=== PATIENT | female | born 1965 | race Caucasian/White ===

== ENCOUNTER 2023-08-26 08:52 | Outpatient (AMB) | payer OTHER, SELFPAY ==
--- NOTE | 2023-08-26 08:58 | MHC.PC.OV ---
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, medication review Intake Note: New patient visit Assistant Manager Pt Required: No Post menopausal: Yes Allergies No Known Allergies Allergy (Verified 08/26/23 08:59) Medication List - Last Reconciled 08/26/23 by Tara Tapia PA-C albuterol sulfate 90 mcg/actuation inhalation alendronate 70 mg PO QWEEK amitriptyline 10 mg PO BEDTIME beclomethasone dipropionate 40 mcg/actuation (Qvar RediHaler) inhalation Tobacco use date assessed: 08/26/23 Dental Screening Dental Screen Date: 08/26/23 Did you have a dental visit in the last 12 months?: Yes Did you have a dental problem in the last 6 months where you did not have access to dental care?: No Was dental information given to patient?: Patient has dentist HPI ROLLER PRINT TENDER, medication review HPI Details Patient is a 57-year-old female who presents today to [facility]. She is transferring from [facility]. She was last seen by myself in January and has a significant past medical history of asthma, anxiety, insomnia, TMJ, impaired fasting glucose, history of SVT and dyslipidemia. Endo: She has a hx a obesity and ifg and would like to try something stronger than ozempic. states ozempic only helped her lose 10 lbs. Pulm: She is on qvar daily and has not needed albuterol. No hospitalizations or intubations. CV: bp today is 117/70. She is no longer on atenolol. She had ablation in 12/[address] Gonzalez and has not had any sx. States she was supposed to control her cholesterol with diet but has been struggling with this. She states that she thinks she needs to go back on Ozempic or Mounjaro. She had a hamburger and macaroni and cheese last night for dinner. She states the day before she had a bag of chips. Psych: amitritypline well tolerated. she states her sleep is great, anxiety is improved and her tmj is resolved. Mammo: Utd, at [facility] 07/2023 colonoscopy: utd, due in 2027 q 5 years pap: utd, follows with Dr. Rizzo, seeing him this month follows with dental q 6 months overdue for eye exam. [facility] Medical History (Updated 08/26/23 @ 09:42 by Tara Tapia PA-C) TMJ (temporomandibular joint syndrome) Insomnia Generalized anxiety disorder Obesity (BMI 30.0-34.9) Colon polyp Hx of supraventricular tachycardia Asthma, mild intermittent, well-controlled Dyslipidemia IFG (impaired fasting glucose) Social History Housing: House Patient Tobacco Use Status: Former Tobacco user Cigarette Packs Per Day: 0.5 Years Smoked: 25 e-Cigarette/Vaping Use: Never Used Second Hand Smoke Exposure: No service: No Current occupational status: unemployed Cognitive needs: No Hearing needs: No Vision needs: No Questionnaire PHQ-9 Over the last 2 weeks, how often have you been bothered by any of the following problems? 1. Little interest or pleasure in doing things: not at all 2. Feeling down, depressed, or hopeless: not at all 3. Trouble falling or staying asleep, or sleeping too much: several days 4. Feeling tired or having little energy: not at all 5. Poor appetite or overeating: more than half the days 6. Feeling bad about yourself - or that you are a failure or have let yourself or your family down: not at all 7. Trouble concentrating on things, such as reading the newspaper or watching television: not at all 8. Moving or speaking so slowly that other people could have noticed. Or the opposite - being so fidgety or restless that you have been moving around a lot more than usual: not at all 9. Thoughts that you would be better off or of hurting yourself in some way: not at all Total score: 3 Depression Screening Interpretation: Positive Depression Screening Follow-up: In treatment and Declines treatment Depression Screening Done: Yes 46825 - PHQ-9 Billing: Yes Source: Developed by Drs. Shad Allen, Mayra Morales, Elder Valverde and colleagues, with an educational elsa from [employer]. Thrive Questionnaire Date Thrive assessed: 08/26/23 I am a: Patient What is your living situation today?: I have a steady place to live Within the past 12 months, did the food you bought not last and you didn't have the money to get more?: Never true Within the past 12 months, did you worry whether your food would run out before you got money to buy more?: Never true Do you have trouble paying for medicines?: No Do you have trouble getting transportation to medical appointments?: No Do you have trouble paying your heating and electricity bill?: No Do you have trouble taking care of your child, family member or friend?: No Do you have trouble with day-to-day activities such as bathing, preparing meals, shopping, managing finances, etc.?: No Are you currently unemployed and looking for a job?: No Are you interested in more education?: No Please select the resources that you would like help with: None Currently or been in a relationship where the following occur: no concerns reported THRIVE Score: 0 AUDIT C Alcohol Use Questionnaire (AUDIT-C) 1. How often do you have a drink containing alcohol?: 2-3 times a week 2. How many drinks containing alcohol do you have on a typical day when you are drinking?: 5 or 6 3. How often do you have six or more drinks on one occasion?: Weekly Total Score: 8 CRISTIN-7 AMB Questionnaire CRISTIN-7 Date CRISTIN - 7 assessed: 08/26/23 Feeling nervous, anxious, or on edge: 0 = Not at all Not being able to stop or control worryin = Not at all Worrying too much about different things: 0 = Not at all Trouble relaxin = Not at all Being so restless that it is hard to sit still: 0 = Not at all Becoming easily annoyed or irritable: 0 = Not at all Feeling afraid as if something awful might happen: 0 = Not at all Total CRISTIN-7 score (0-4 normal; 5-9 mild; 10-14 moderate; 15-21 severe): 0 Source: Developed by Drs. Shad Allen, Mayra Morales, Elder Valverde and colleagues, with an educational elsa from [employer] CRISTIN-7 Assessment Billing CRISTIN-7 Assessment Tool: CRISTIN-7 Assessment 30152 Physical exam (Primary Care) Vital Signs: Last Vital Signs Temp 98.1 F 08/26/23 09:02 Pulse 70 08/26/23 09:02 Resp 16 08/26/23 09:02 BP 117/76 08/26/23 09:02 Pulse Ox 96 08/26/23 09:02 Oxygen Delivery Method Room Air 08/26/23 09:02 BMI result Body Mass Index 32.3 BMI Assessment/Plan discussion: High BMI High, discussed plan: lifestyle, weight reduction, dietary and physical activity Tobacco/Smoking Status: Tobacco use Status Tobacco use date assessed 08/26/23 08/26/23 09:06 Patient Tobacco Use Status Former Tobacco user 08/26/23 09:06 e-Cigarette/Vaping Use Never Used 08/26/23 09:06 Depression Screening Interpretation: Positive Depression Screening Follow-up: In treatment and Declines treatment Currently or been in a relationship where the following occur: no concerns reported Const Orientation/consciousness: patient oriented x3 HENMT Ears: hearing grossly normal bilaterally Neck Thyroid: Thyroid normal Lymphatic: no lymphadenopathy noted Resp Auscultation: clear to auscultation bilaterally Cardio Rate: regular rate Rhythm: regular rhythm Heart sounds: S1 normal heart sound present and S2 normal heart sound present GI Inspection: Yes normal to inspection Palpation (GI): Soft to palpation and Other GI palpation findings present (nontender, no cva tenderness) Auscultation: normoactive bowel sounds Rectal Exam - Female: deferred Skin General skin exam: no rashes or lesions noted Neuro General: patient oriented x3, gait normal and no focal motor deficits Assessment and Plan Assessment & Plan (1) IFG (impaired fasting glucose): Code(s): R73.01 - Impaired fasting glucose Plan: Labs ordered today. We will try Mounjaro. Discussed risks and benefits and adverse effects of this medication including nausea, vomiting, constipation. We discussed increased risk of pancreatitis, gastroparesis and thyroid malignancy. We will have her follow up in 3-4 months. Sooner if needed. (2) Dyslipidemia: Code(s): E78.5 - Hyperlipidemia, unspecified Plan: Labs ordered. We will follow up pending test results. Discussed possibility of statin. She tells me she will think about this. I have offered referral to yarn spooler but declines. (3) Obesity (BMI 30.0-34.9): Code(s): E66.9 - Obesity, unspecified Plan: As above. We discussed weight loss strategies. (4) Generalized anxiety disorder: Code(s): F41.1 - Generalized anxiety disorder Plan: Currently well-controlled. Refill provided for amitriptyline. Orders: Orders Lipid Panel Today E78.5 - Hyperlipidemia, unspecified, J45.20 - Mild intermittent asthma, uncomplicated, K63.5 - Polyp of colon, R73.01 - Impaired fasting glucose, Z86.79 - Personal history of other diseases of the circulatory system Comprehensive Duncan. Panel Fast Today E78.5 - Hyperlipidemia, unspecified, J45.20 - Mild intermittent asthma, uncomplicated, K63.5 - Polyp of colon, R73.01 - Impaired fasting glucose, Z86.79 - Personal history of other diseases of the circulatory system Complete Blood Count Auto Diff Today E78.5 - Hyperlipidemia, unspecified, J45.20 - Mild intermittent asthma, uncomplicated, K63.5 - Polyp of colon, R73.01 - Impaired fasting glucose, Z86.79 - Personal history of other diseases of the circulatory system Hemoglobin A1c Today E78.5 - Hyperlipidemia, unspecified, J45.20 - Mild intermittent asthma, uncomplicated, K63.5 - Polyp of colon, R73.01 - Impaired fasting glucose, Z86.79 - Personal history of other diseases of the circulatory system TSH reflex Free T4 Today E78.5 - Hyperlipidemia, unspecified, J45.20 - Mild intermittent asthma, uncomplicated, K63.5 - Polyp of colon, R73.01 - Impaired fasting glucose, Z86.79 - Personal history of other diseases of the circulatory system Medications: New tirzepatide (Mounjaro) 2.5 mg (0.5 mL) subcut QWEEK 4 weeks 2 mL 0RF amitriptyline 10 mg PO BEDTIME 90 tabs 3RF Coding Level of Care Code Est Pt Level 4 (69455) Complex EM visit Add On G2211 Diagnoses IFG (impaired fasting glucose) R73.01 Dyslipidemia E78.5 Obesity (BMI 30.0-34.9) E66.9 Generalized anxiety disorder F41.1 Additional Codes CRISTIN-7 Assessment Billing - CRISTIN-7 Assessment Tool: CRISTIN-7 Assessment 22880 ([id number])
[2023-08-26 09:02] VITALS: BP 117/76; PULSE 70; RESP 16; TEMP 36.7; O2SAT 96; BMI 32.3
== END 2023-08-26 09:41 | disposition home or self-care (01) ==
PROVIDERS: PCP Physician Assistant; Visit Provider Physician Assistant
DX: R73.01 Impaired fasting glucose (principal); E78.5 Hyperlipidemia, unspecified; E66.9 Obesity, unspecified; Z68.32 Body mass index [BMI] 32.0-32.9, adult; F41.1 Generalized anxiety disorder
CPT/HCPCS: 99214; G2211

== ENCOUNTER 2023-09-18 07:00 | Outpatient (REF) | payer OTHER, SELFPAY ==
[2023-09-18 11:27] LABS: MANUAL DIFF FLAG NO
[2023-09-18 11:36] LABS: Basophils Percent Auto 0.6 % (0-2); Eosinophils Absolute Auto 0.1 X10*3/uL (0.0-0.4); Eosinophils Percent Auto 2.1 % (0-4); Hematocrit 43.8 % (37.0-47.0); Hemoglobin 14.8 g/dl (12.0-16.0); Imm Gran Abs Auto 0.01 X10*3/uL (0.00-0.03); Imm Gran Pct Auto 0.2 % (0.0-0.4); Lymphocytes Absolute Auto 1.7 X10*3/uL (1.2-4.9); Lymphocytes Percent Auto 33.1 % (20-40); Mean Corpuscular HGB Conc 33.8 g/dl (31.0-35.0); Mean Corpuscular Hemoglobin 30.2 pg (27.0-33.0); Mean Corpuscular Volume 89.4 fL (80.0-98.0); Mean Platelet Volume 9.6 fL (9.4-12.3); Monocytes Absolute Auto 0.5 X10*3/uL (0.1-1.2); Monocytes Percent Auto 9.9 % (2-11); Neutrophils Absolute Auto 2.8 x10*3/uL (2.0-8.3); Neutrophils Percent Auto 54.1 % (45-73); Platelet Count 296 X10*3/uL (160-400); Red Cell Distribution Width 12.5 % (11.0-16.0); White Blood Count 5.2 X10*3/uL (4.8-10.8)
[2023-09-18 11:45] LABS: Estimated Average Glucose 123 mg/dL; Hemoglobin A1C 148.3174 umol/L; Hemoglobin A1c % 5.9 % (<6.0)
[2023-09-18 11:52] LABS: Alanine Aminotransferase 22 U/L (0-31); Albumin Level 4.3 g/dL (3.5-5.0); Alkaline Phosphatase 41 U/L (39-117); Anion Gap 12 (12-20); Aspartate Amino Transferase 17 U/L (5-31); Bilirubin Total 0.4 mg/dL (0.0-1.0); Blood Urea Nitrogen 11 mg/dL (9-16); Calcium 9.6 mg/dL (8.4-10.2); Carbon Dioxide 27 mmol/L (22-29); Chloride 106 mmol/L (96-108); Cholesterol 215 mg/dL (<200); Estimated Glomerular Filt Rate > 60; Glucose Fasting 99 mg/dL (60-99); HDL Cholesterol 46 mg/dL (>40); LDL Cholesterol Calculated 144 mg/dL (<100); Sodium 141 mmol/L (135-145); Total Protein 7.2 g/dL (6.5-8.0); Triglycerides 129 mg/dL (<150)
== END 2023-09-18 07:01 | disposition home or self-care (01) ==
LOC: HO.WFDLDS 07:00
PROVIDERS: Visit Provider Physician Assistant
DX: R73.01 Impaired fasting glucose (principal); E78.5 Hyperlipidemia, unspecified; J45.20 Mild intermittent asthma, uncomplicated; K63.5 Polyp of colon; Z86.79 Personal history of other diseases of the circulatory system
CPT/HCPCS: 36415; 80053; 80061; 83036; 84443; 85025

== ENCOUNTER 2023-12-09 08:24 | Outpatient (AMB) | payer OTHER, SELFPAY ==
--- NOTE | 2023-12-09 08:34 | MHC.PC.OV ---
Vital Signs 12/09/23 08:37 Height 5 ft 7 in Weight 199 lb 4 oz BMI 31.2 BP 108/84 Blood Pressure Location Lt brachial Position Sitting Pulse 76 Pulse Source Pulse Oximeter Pulse Oximetry (%) 96 Oxygen Delivery Method Room Air Intake Visit Reasons: 3 month f/u Intake Note: Three month follow up Allergies No Known Allergies Allergy (Verified 12/09/23 08:36) Medication List - Last Reconciled 12/09/23 by Tara Tapia PA-C albuterol sulfate 90 mcg/actuation 2 puffs inhalation Q4-6H PRN alendronate 70 mg PO QWEEK amitriptyline 10 mg PO BEDTIME beclomethasone dipropionate 40 mcg/actuation (Qvar RediHaler) inhalation semaglutide (Ozempic) 0.25 mg (0.368 mL) subcut QWEEK Tobacco use date assessed: 08/26/23 Dental Screening Dental Screen Date: 08/26/23 HPI 3 month f/u HPI Details Patient is a 58-year-old female who presents today to follow up. She has a significant past medical history of asthma, anxiety, insomnia, TMJ, impaired fasting glucose, history of SVT and dyslipidemia. Endo: She has a hx a obesity and ifg. On Ozempic and tolerating well. Would like to increase dose lose more weight Pulm: She is on qvar daily and has not needed albuterol. No hospitalizations or intubations. CV: bp today is 108/84. She is no longer on atenolol. She had ablation in 12/[address] Gonzalez and has not had any sx. Her cholesterol is diet controlled. She states it is getting better because she has lost some weight with the Ozempic. Psych: amitritypline well tolerated. she states her sleep is great, anxiety is improved and her tmj is resolved. Mammo: Utd, at [facility] [place] 07/2023 colonoscopy: utd, due in 2027 q 5 years pap: utd, follows with Dr. Rizzo Bone density: Up-to-date, on Fosamax. Follows with Dr. Rizzo for this [facility] Medical History (Updated 08/26/23 @ 09:45 by Sindy Jamison CMA) Osteoporosis TMJ (temporomandibular joint syndrome) Insomnia Generalized anxiety disorder Obesity (BMI 30.0-34.9) Colon polyp Hx of supraventricular tachycardia Asthma, mild intermittent, well-controlled Dyslipidemia IFG (impaired fasting glucose) Family History (Updated 08/26/23 @ 09:44 by Sindy Jamison CMA) Father HTN (hypertension) Social History (Updated 08/26/23 @ 09:14 by Sindy Jamison CMA) Housing: House Patient Tobacco Use Status: Former Tobacco user Cigarette Packs Per Day: 0.5 Years Smoked: 25 e-Cigarette/Vaping Use: Never Used Second Hand Smoke Exposure: No service: No Current occupational status: unemployed Cognitive needs: No Hearing needs: No Vision needs: No Questionnaire Thrive Questionnaire Date Thrive assessed: 08/26/23 CRISTIN-7 AMB Questionnaire CRISTIN-7 Date CRISTIN - 7 assessed: 08/26/23 Source: Developed by Drs. Shad Allen, Mayra Morales, Elder Valverde and colleagues, with an educational elsa from [employer]. Physical exam (Primary Care) Vital Signs: Last Vital Signs Pulse 76 12/09/23 08:37 BP 108/84 12/09/23 08:37 Pulse Ox 96 12/09/23 08:37 Oxygen Delivery Method Room Air 12/09/23 08:37 BMI result Body Mass Index 31.2 Tobacco/Smoking Status: Tobacco use Status Tobacco use date assessed 08/26/23 12/09/23 08:35 Patient Tobacco Use Status Former Tobacco user 12/09/23 08:35 e-Cigarette/Vaping Use Never Used 12/09/23 08:35 Thrive Assessment: Date of Thrive Assessment Date Thrive assessed 08/26/23 12/09/23 08:35 Const Orientation/consciousness: patient oriented x3 HENMT Ears: hearing grossly normal bilaterally Neck Thyroid: Thyroid normal Lymphatic: no lymphadenopathy noted Resp Auscultation: clear to auscultation bilaterally Cardio Rate: regular rate Rhythm: regular rhythm Heart sounds: S1 normal heart sound present and S2 normal heart sound present GI Inspection: Yes normal to inspection Palpation (GI): Soft to palpation and Other GI palpation findings present (nontender, no cva tenderness) Auscultation: normoactive bowel sounds Rectal Exam - Female: deferred Skin General skin exam: no rashes or lesions noted Neuro General: patient oriented x3, gait normal and no focal motor deficits Results Reviewed Results Reviewed: Laboratory Tests 09/18/23 07:01 WBC 5.2 RBC 4.90 Hgb 14.8 Hct 43.8 Plt Count 296 Sodium 141 Potassium 4.0 Chloride 106 Creatinine 0.82 Estimated GFR > 60 Fasting Glucose 99 Hemoglobin A1c % 5.9 AST 17 ALT 22 Triglycerides 129 Cholesterol 215 H LDL Cholesterol, Calc 144 H HDL Cholesterol 46 TSH 1.20 Assessment and Plan Assessment & Plan (1) IFG (impaired fasting glucose): Code(s): R73.01 - Impaired fasting glucose Plan: Increase Ozempic. We will check labs in 3 months (2) Dyslipidemia: Code(s): E78.5 - Hyperlipidemia, unspecified Plan: Cholesterol did improve with diet changes. We will continue to monitor she is not quite at goal. Orders: Orders Comprehensive [place]. Panel Fast Today E78.5 - Hyperlipidemia, unspecified, R73.01 - Impaired fasting glucose Lipid Panel Today E78.5 - Hyperlipidemia, unspecified, R73.01 - Impaired fasting glucose Hemoglobin A1c Today E78.5 - Hyperlipidemia, unspecified, R73.01 - Impaired fasting glucose Medications: New semaglutide (Ozempic) 0.5 mg (0.736 mL) subcut QWEEK 3 mL 3RF Discontinued semaglutide (Ozempic) for 4 weeks Discontinued Reason: Doctor's Order 0.25 mg (0.368 mL) subcut QWEEK 3 mL 3RF Coding Level of Care Code Est Pt Level 4 (78178) Complex EM visit Add On G2211 Diagnoses IFG (impaired fasting glucose) R73.01 Dyslipidemia E78.5
[2023-12-09 08:37] VITALS: BP 108/84; PULSE 76; O2SAT 96; BMI 31.2
== END 2023-12-09 09:05 | disposition home or self-care (01) ==
PROVIDERS: PCP Physician Assistant; Visit Provider Physician Assistant
DX: R73.01 Impaired fasting glucose (principal); E78.5 Hyperlipidemia, unspecified
CPT/HCPCS: 99214; G2211

== ENCOUNTER 2024-03-23 08:32 | Outpatient (REF) | payer OTHER, SELFPAY ==
[2024-03-23 11:47] LABS: Estimated Average Glucose 111 mg/dL; Hemoglobin A1C 142.7763 umol/L; Hemoglobin A1c % 5.5 % (<6.0); Total Hemoglobin (HGBA1C) 3859.5673 umol/L
[2024-03-23 12:08] LABS: Alanine Aminotransferase 22 U/L (0-31); Albumin Level 4.3 g/dL (3.5-5.0); Alkaline Phosphatase 49 U/L (39-117); Anion Gap 15 (12-20); Aspartate Amino Transferase 19 U/L (5-31); Bilirubin Total 0.4 mg/dL (0.0-1.0); Blood Urea Nitrogen 11 mg/dL (9-16); Calcium 9.4 mg/dL (8.4-10.2); Carbon Dioxide 27 mmol/L (22-29); Chloride 105 mmol/L (96-108); Cholesterol 221 mg/dL (<200); Estimated Glomerular Filt Rate > 60; Glucose Fasting 92 mg/dL (60-99); HDL Cholesterol 46 mg/dL (>40); LDL Cholesterol Calculated 148 mg/dL (<100); Potassium 4.1 mmol/L (3.3-5.1); Sodium 143 mmol/L (135-145); Total Protein 7.1 g/dL (6.5-8.0); Triglycerides 138 mg/dL (<150)
== END 2024-03-23 08:33 | disposition home or self-care (01) ==
LOC: HO.WFDLDS 08:32
PROVIDERS: Visit Provider Physician Assistant
DX: R73.01 Impaired fasting glucose (principal); E78.5 Hyperlipidemia, unspecified
CPT/HCPCS: 36415; 80053; 80061; 83036

== ENCOUNTER 2024-03-30 08:37 | Outpatient (AMB) | payer OTHER, SELFPAY ==
--- NOTE | 2024-03-30 08:50 | MHC.PC.OV ---
Vital Signs 03/30/24 08:51 Height 5 ft 7 in Weight 197 lb 8 oz BMI 30.9 BP 108/74 Blood Pressure Location Rt brachial Position Sitting Pulse 76 Pulse Source Pulse Oximeter Pulse Oximetry (%) 98 Oxygen Delivery Method Room Air Intake Visit Reasons: 3 month f/u Intake Note: Three month follow up Signal System Testing Maintainer Required: No Allergies No Known Allergies Allergy (Verified 03/30/24 08:50) Medication List - Last Reconciled 03/30/24 by Tara Tapia PA-C albuterol sulfate 90 mcg/actuation 2 puffs inhalation Q6H PRN alendronate 70 mg PO QWEEK amitriptyline 10 mg PO BEDTIME beclomethasone dipropionate 40 mcg/actuation (Qvar RediHaler) 1 inh inhalation BID 30 days semaglutide (Ozempic) 2 mg (0.75 mL) subcut QWEEK Tobacco use date assessed: 08/26/23 Dental Screening Dental Screen Date: 08/26/23 HPI 3 month f/u HPI Details History of Present Illness The patient is a 58-year-old female presenting with follow-up concerns regarding prediabetes, hypercholesterolemia, and weight management. Her blood glucose levels have shown improvement, with an A1c decrease from 5.9% (indicating prediabetes) to 5.5% (normal range). The patient attributes this change partly to medication. She has been taking semaglutide (Ozempic), started at 1 mg, and is now considering an increase to 2 mg to enhance weight loss and appetite suppression. Since November, her weight has reduced slightly from 199 lbs to 197 lbs. The patient notes that her clothing fits more loosely, though the scale change is minimal, suggesting potential improvements in body composition. Regarding cholesterol, despite dietary modifications such as reducing cheese intake, her levels remain elevated without significant change since August. She has a family history of hypercholesterolemia but no history of heart disease. She consumes yogurt with walnuts for breakfast and noted the use of high-fat salad dressings, which she plans to replace with healthier options. She also mentioned the use of fish oil, which was confirmed to lower triglycerides. The patient also described symptoms consistent with gastroesophageal reflux disease (GERD), which she associates with certain foods like spaghetti sauce and coffee. She does not want to try a medication at this point. She says she knows what triggers it and thinks it is a little bit worse because of the Ozempic. No difficulty swallowing or abdominal pain. 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 - Exercise: Regular walking at work and plans to incorporate more intensive exercise, such as walking uphill. - Diet: Consumes yogurt with walnuts, acknowledges high-fat salad dressing; plans to incorporate apple cider vinegar for cholesterol management. - Weight Management: Slight reduction in weight noted, interest in continuing weight loss efforts. - Smoking History: Quit smoking 15 years ago. Review of Systems - Gastrointestinal: Reports acid reflux associated with certain foods. - Respiratory: Denies chest pain, shortness of breath. - Neurological: Denies ear pain, sinus pain. Physical Exam General: Cooperative, healthy appearing, comfortable, no acute distress and well developed Orientation: Patient oriented x3 Limitations: No limitations Head: Normal to inspection Ears: Hearing grossly normal bilaterally, right ear with a teeny bit of salt crystals at the base- was in a salt pool/bath a few days ago and got water in her ear Nose: Normal external nose present Face and sinus: Normal facial exam Eyes: Appearance normal, both eyes and all related structures Neck: Normal visual inspection and Yes full ROM, no swelling, lymph nodes feel good, thyroid feels good Respiratory: Normal respiratory effort and able to speak in complete sentences. Clear to auscultation bilaterally Cardiovascular: Regular rate and rhythm. Normal S1 and S2 GI: Normal to inspection. Soft to palpation and nontender Skin: No rashes or lesions noted Neuro: Patient oriented x3 Extremities: Normal to inspection, no swelling, compression sock on one leg, legs look good Results - Labs: Blood glucose (A1c) improved to 5.5%. Plan - Prediabetes: Initiate an increased dose of semaglutide Ozempic) to 2 mg weekly to enhance weight loss and appetite suppression. - Hypercholesterolemia: Encourage continued dietary changes and maintain current use of fish oil. Plan for re-evaluation of cholesterol levels in four months. Will consider statin. - GERD: Educate on dietary triggers and consider apple cider vinegar as a potential remedy for symptom control. Monitor for exacerbation at increased medication dosage. - Weight Management: Advise continued physical activity, including increased intensity of exercise, such as walking uphill. - Preventive Care: Order comprehensive blood work in four months, including liver and kidney function tests, electrolytes, and complete blood count. Discuss cholesterol management options should lifestyle modifications not suffice. Patient was informed and verbally consented to the use of an ambient scribe for clinic note documentation during this visit. Discussion Notes I discussed with the patient the current management of her prediabetes, noting the positive impact of semaglutide on her blood glucose levels with a reduction in A1c to within normal limits. We reviewed the potential benefits of increasing the semaglutide dose to support further weight loss efforts, acknowledging the associated risks such as nausea and vomiting. For hypercholesterolemia, we explored dietary changes, stressing the importance of reducing processed high-fat foods. I advised maintaining fish oil supplementation and incorporating healthier dressing alternatives, such as balsamic vinegar with olive oil or apple cider vinegar. We discussed re-evaluating cholesterol levels after four months to assess the impact of these lifestyle changes. I advised on GERD management with dietary adjustments and explained the possible beneficial effects of apple cider vinegar for symptoms. We agreed to monitor symptoms closely, especially with the changes in medication dosage. [place] [facility] [place]: utd, due in 2027 q 5 years pap: jose antoniod, follows with Dr. Rizzo Bone density: Up-to-date, on Fosamax. Follows with Dr. Rizzo for this [facility] Medical History (Updated 08/26/23 @ 09:45 by iSndy Jamison CMA) Osteoporosis TMJ (temporomandibular joint syndrome) Insomnia Generalized anxiety disorder Obesity (BMI 30.0-34.9) Colon polyp Hx of supraventricular tachycardia Asthma, mild intermittent, well-controlled Dyslipidemia IFG (impaired fasting glucose) Family History Father HTN (hypertension) Social History (Updated 03/30/24 @ 08:55 by Sindy Jamison CMA) Housing: House Alcohol intake: current Patient Tobacco Use Status: Former Tobacco user Cigarette Packs Per Day: 0.5 Years Smoked: 25 e-Cigarette/Vaping Use: Never Used Second Hand Smoke Exposure: No service: No Current occupational status: unemployed Cognitive needs: No Hearing needs: No Vision needs: No Questionnaire PHQ-9 Over the last 2 weeks, how often have you been bothered by any of the following problems? 1. Little interest or pleasure in doing things: not at all 2. Feeling down, depressed, or hopeless: not at all 3. Trouble falling or staying asleep, or sleeping too much: not at all 4. Feeling tired or having little energy: not at all 5. Poor appetite or overeating: not at all 6. Feeling bad about yourself - or that you are a failure or have let yourself or your family down: not at all 7. Trouble concentrating on things, such as reading the newspaper or watching television: not at all 8. Moving or speaking so slowly that other people could have noticed. Or the opposite - being so fidgety or restless that you have been moving around a lot more than usual: not at all 9. Thoughts that you would be better off or of hurting yourself in some way: not at all Total score: 0 Depression Screening Interpretation: Negative Depression Screening Done: Yes 94828 - PHQ-9 Billing: Yes Source: Developed by Drs. Shad Allen, Mayra Morales, Elder Valverde and colleagues, with an educational elsa from [employer]. Thrive Questionnaire Date Thrive assessed: 03/30/24 I am a: Patient What is your living situation today?: I have a steady place to live Within the past 12 months, did the food you bought not last and you didn't have the money to get more?: Never true Within the past 12 months, did you worry whether your food would run out before you got money to buy more?: Never true Do you have trouble paying for medicines?: No Do you have trouble getting transportation to medical appointments?: No Do you have trouble paying your heating and electricity bill?: No Do you have trouble taking care of your child, family member or friend?: No Do you have trouble with day-to-day activities such as bathing, preparing meals, shopping, managing finances, etc.?: No Are you currently unemployed and looking for a job?: No Are you interested in more education?: No Please select the resources that you would like help with: None Currently or been in a relationship where the following occur: I choose not to answer THRIVE Score: 0 AUDIT C Alcohol Use Questionnaire (AUDIT-C) 1. How often do you have a drink containing alcohol?: 2-4 times a month 2. How many drinks containing alcohol do you have on a typical day when you are drinking?: 5 or 6 3. How often do you have six or more drinks on one occasion?: Never Total Score: 4 CRISTIN-7 AMB Questionnaire CRISTIN-7 Date CRISTIN - 7 assessed: 03/30/24 Feeling nervous, anxious, or on edge: 0 = Not at all Not being able to stop or control worryin = Not at all Worrying too much about different things: 0 = Not at all Trouble relaxin = Not at all Being so restless that it is hard to sit still: 0 = Not at all Becoming easily annoyed or irritable: 0 = Not at all Feeling afraid as if something awful might happen: 0 = Not at all Total CRISTIN-7 score (0-4 normal; 5-9 mild; 10-14 moderate; 15-21 severe): 0 Source: Developed by Drs. Shad Allen, Mayra Morales, Elder Valverde and colleagues, with an educational elsa from [employer]. CRISTIN-7 Assessment Billing CRISTIN-7 Assessment Tool: CRISTIN-7 Assessment 96954 Physical exam (Primary Care) Vital Signs: Last Vital Signs Pulse 76 03/30/24 08:51 BP 108/74 03/30/24 08:51 Pulse Ox 98 03/30/24 08:51 Oxygen Delivery Method Room Air 03/30/24 08:51 BMI result Body Mass Index 30.9 Tobacco/Smoking Status: Tobacco use Status Tobacco use date assessed 08/26/23 03/30/24 08:53 Patient Tobacco Use Status Former Tobacco user 03/30/24 08:55 e-Cigarette/Vaping Use Never Used 03/30/24 08:55 PHQ-9: PHQ-9 Score PHQ-9: Total score 0 03/30/24 12:58 Depression Screening Interpretation: Negative Thrive Assessment: Date of Thrive Assessment Date Thrive assessed 03/30/24 03/30/24 08:56 Currently or been in a relationship where the following occur: I choose not to answer Results Reviewed Results Reviewed: Laboratory Tests 09/18/23 03/23/24 07:01 08:33 Sodium 143 Potassium 4.1 Chloride 105 Carbon Dioxide 27 Anion Gap 15 BUN 11 Creatinine 0.86 Estimated GFR > 60 Fasting Glucose 92 Hemoglobin A1c % 5.9 5.5 AST 19 ALT 22 Triglycerides 138 Cholesterol 221 H LDL Cholesterol, Calc 148 H HDL Cholesterol 46 Coding Level of Care Code Est Pt Level 4 (70244) Complex EM visit Add On G2211 Diagnoses Obesity (BMI 30.0-34.9) E66.9 Dyslipidemia E78.5 IFG (impaired fasting glucose) R73.01 Additional Codes CRISTIN-7 Assessment Billing - CRISTIN-7 Assessment Tool: CRISTIN-7 Assessment [id number] ([id number]) PHQ-9 - 26463 - PHQ-9 Billing: Yes ([id number]) Assessment & Plan Assessment & Plan (1) Obesity (BMI 30.0-34.9): Code(s): E66.9 - Obesity, unspecified Category: Medical (2) Dyslipidemia: Code(s): E78.5 - Hyperlipidemia, unspecified Category: Medical (3) IFG (impaired fasting glucose): Code(s): R73.01 - Impaired fasting glucose Category: Medical Plan . Orders: Orders Complete Blood Count Auto Diff Today E66.9 - Obesity, unspecified, E78.5 - Hyperlipidemia, unspecified, R73.01 - Impaired fasting glucose Lipid Panel Today E66.9 - Obesity, unspecified, E78.5 - Hyperlipidemia, unspecified, R73.01 - Impaired fasting glucose Comprehensive Met. Panel Today E66.9 - Obesity, unspecified, E78.5 - Hyperlipidemia, unspecified, R73.01 - Impaired fasting glucose TSH reflex Free T4 Today E66.9 - Obesity, unspecified, E78.5 - Hyperlipidemia, unspecified, R73.01 - Impaired fasting glucose Hemoglobin A1c Today E66.9 - Obesity, unspecified, E78.5 - Hyperlipidemia, unspecified, R73.01 - Impaired fasting glucose Microalbumin, Random (w Creat) Today E66.9 - Obesity, unspecified, E78.5 - Hyperlipidemia, unspecified, R73.01 - Impaired fasting glucose Medications: New semaglutide (Ozempic) 2 mg (0.75 mL) subcut QWEEK 3 mL 2RF Discontinued semaglutide (Ozempic) Discontinued Reason: Doctor's Order 1 mg (0.75 mL) subcut QWEEK 3 mL 3RF
[2024-03-30 08:51] VITALS: BP 108/74; PULSE 76; O2SAT 98; BMI 30.9
== END 2024-03-30 09:22 | disposition home or self-care (01) ==
PROVIDERS: PCP Physician Assistant; Visit Provider Physician Assistant
DX: E78.5 Hyperlipidemia, unspecified (principal); E66.9 Obesity, unspecified; Z68.30 Body mass index [BMI] 30.0-30.9, adult; R73.01 Impaired fasting glucose

== ENCOUNTER → 2024-03-30 08:37 | Outpatient (BNVA) | payer OTHER, SELFPAY | PROVIDERS: PCP Physician Assistant; Visit Provider Physician Assistant | DX: E66.9 Obesity, unspecified (principal); Z68.30 Body mass index [BMI] 30.0-30.9, adult; E78.5 Hyperlipidemia, unspecified; R73.01 Impaired fasting glucose; K21.9 Gastro-esophageal reflux disease without esophagitis | CPT/HCPCS: 96127 ==

== ENCOUNTER 2024-06-02 08:36 | Outpatient (AMB) | payer OTHER, SELFPAY ==
--- NOTE | 2024-06-02 08:21 | MHC.PC.OV ---
Intake Visit Reasons: Cramping, mild rectal bleeding Intake Note: Cramping and rectal bleeding. Copy Cutter Required: No Allergies No Known Allergies Allergy (Verified 06/02/24 08:32) Tobacco use date assessed: 06/02/24 Dental Screening Dental Screen Date: 08/26/23 HPI Cramping, mild rectal bleeding HPI Details Pt is a 58 y/o female who has a significant pmhx of dyslipidemia, ifg and well controlled asthma presenting today with concerns of GI sx. GI: She states that she woke up early on Thursday morning with feeling nauseous and having abdominal pain. She states she had an episode of loose stool and noted bright red blood in the toilet bowl. She states that it every time she went to the bathroom (even for urination) she was just dripping blood from her rectum without any rectal pain. She states since Thursday she has only had rectal bleeding with bowel movements. She states she has had persistent suprapubic cramping and discomfort since Thursday that comes and goes. She states she had one episode of vomiting on Thursday and nothing since then. She has not had any diarrhea since Thursday. She does typically have some constipation since starting ozempic but states that she does not push or strain. She has no hx of internal hemorrhoids. She has a colonoscopy a couple years ago and is on the 5 year plan due to polyps. No fever, chills, decreased appetite, weight loss, flank pain, urinary sx. No recent travel. She states if she pushes on her abdomen she does not have pain. [facility] Medical History (Updated 06/02/24 @ 08:54 by Tara Tapia PA-C) Osteoporosis TMJ (temporomandibular joint syndrome) Insomnia Generalized anxiety disorder Obesity (BMI 30.0-34.9) Colon polyp Hx of supraventricular tachycardia Asthma, mild intermittent, well-controlled Dyslipidemia IFG (impaired fasting glucose) Family History Father HTN (hypertension) Social History (Updated 03/30/24 @ 08:55 by Sindy Jamison CMA) Housing: House Alcohol intake: current Patient Tobacco Use Status: Former Tobacco user Cigarette Packs Per Day: 0.5 Years Smoked: 25 e-Cigarette/Vaping Use: Never Used Second Hand Smoke Exposure: No service: No Current occupational status: employed 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 Current occupational exposures/hazards: No Cognitive needs: No Hearing needs: No Vision needs: No Questionnaire Thrive Questionnaire Date Thrive assessed: 06/01/24 I am a: Patient What is your living situation today?: I have a steady place to live Within the past 12 months, did the food you bought not last and you didn't have the money to get more?: Never true Within the past 12 months, did you worry whether your food would run out before you got money to buy more?: Never true Do you have trouble paying for medicines?: I choose not to answer this question Do you have trouble getting transportation to medical appointments?: No Do you have trouble paying your heating and electricity bill?: I choose not to answer this question Do you have trouble taking care of your child, family member or friend?: No Do you have trouble with day-to-day activities such as bathing, preparing meals, shopping, managing finances, etc.?: No Are you currently unemployed and looking for a job?: No Are you interested in more education?: I choose not to answer this question Please select the resources that you would like help with: None Currently or been in a relationship where the following occur: No concerns reported THRIVE Score: 0 AUDIT C Alcohol Use Questionnaire (AUDIT-C) 1. How often do you have a drink containing alcohol?: 2-4 times a month 2. How many drinks containing alcohol do you have on a typical day when you are drinking?: 3 or 4 3. How often do you have six or more drinks on one occasion?: Less than monthly Total Score: 4 CRISTIN-7 AMB Questionnaire CRISTIN-7 Date CRISTIN - 7 assessed: 03/30/24 Feeling nervous, anxious, or on edge: 0 = Not at all Not being able to stop or control worryin = Not at all Worrying too much about different things: 0 = Not at all Trouble relaxin = Not at all Being so restless that it is hard to sit still: 0 = Not at all Becoming easily annoyed or irritable: 0 = Not at all Feeling afraid as if something awful might happen: 0 = Not at all Total CRISTIN-7 score (0-4 normal; 5-9 mild; 10-14 moderate; 15-21 severe): 0 Source: Developed by Drs. Shad Allen, Mayra Morales, Elder Valverde and colleagues, with an educational elsa from [employer]. Physical exam (Primary Care) Tobacco/Smoking Status: Tobacco use Status Tobacco use date assessed 06/02/24 06/02/24 08:33 Patient Tobacco Use Status Former Tobacco user 06/02/24 08:22 e-Cigarette/Vaping Use Never Used 06/02/24 08:22 Thrive Assessment: Date of Thrive Assessment Date Thrive assessed 06/01/24 06/02/24 08:22 Currently or been in a relationship where the following occur: No concerns reported Telehealth Telehealth Telehealth Platform: Telephone Location of provider rendering services: practice address Location of patient: address on file Patient Identification confirmed using: Name, : Yes Telehealth method: voice only Patient verbally consented to treatment: Yes Patient verbally consented to billing insurance company: Yes Patient informed of any privacy concerns related to visit: Yes Minutes spent on Phone/Video with Pt.: 18 Coding Level of Care Code Tele Est Pt Level 3 (35064) Diagnoses Lower abdominal pain R10.30 Rectal bleeding K62.5 Assessment & Plan Assessment & Plan (1) Lower abdominal pain: Code(s): R10.30 - Lower abdominal pain, unspecified Category: Medical Plan: denies pain currently and we reviewed signs and symptoms of abdominal pain that would require emergent medical treatment. labs today including cbc, cmp, tsh. abdominal and pelvis ct ordered. we will follow up pending test results. will refer to GI. pt understands and agrees with the plan. (2) Rectal bleeding: Code(s): K62.5 - Hemorrhage of anus and rectum Category: Medical Plan: no current bleeding Orders: Orders CT abdomen pelvis wo/w IV con Today K62.5 - Hemorrhage of anus and rectum, R10.30 - Lower abdominal pain, unspecified Referrals Gastroenterology Referral K62.5 - Hemorrhage of anus and rectum
== END 2024-06-02 09:58 | disposition home or self-care (01) ==
LOC: HO.HMCFM 08:36
PROVIDERS: PCP Physician Assistant; Visit Provider Physician Assistant
DX: R10.30 Lower abdominal pain, unspecified (principal); K62.5 Hemorrhage of anus and rectum

== ENCOUNTER → 2024-06-02 08:36 | Outpatient (BNVA) | payer OTHER, SELFPAY | PROVIDERS: PCP Physician Assistant; Visit Provider Physician Assistant ==

== ENCOUNTER 2024-06-02 08:57 | Outpatient (REF) | payer OTHER, SELFPAY ==
[2024-06-02 11:13] LABS: MANUAL DIFF FLAG NO
[2024-06-02 11:22] LABS: Basophils Percent Auto 0.7 % (0-2); Eosinophils Absolute Auto 0.1 X10*3/uL (0.0-0.4); Eosinophils Percent Auto 1.9 % (0-4); Hematocrit 40.4 % (37.0-47.0); Hemoglobin 13.8 g/dl (12.0-16.0); Imm Gran Abs Auto 0.02 X10*3/uL (0.00-0.03); Imm Gran Pct Auto 0.3 % (0.0-0.4); Lymphocytes Absolute Auto 1.8 X10*3/uL (1.2-4.9); Lymphocytes Percent Auto 30.6 % (20-40); Mean Corpuscular HGB Conc 34.2 g/dl (31.0-35.0); Mean Corpuscular Hemoglobin 29.8 pg (27.0-33.0); Mean Corpuscular Volume 87.3 fL (80.0-98.0); Mean Platelet Volume 9.8 fL (9.4-12.3); Monocytes Absolute Auto 0.5 X10*3/uL (0.1-1.2); Monocytes Percent Auto 8.4 % (2-11); Neutrophils Absolute Auto 3.4 x10*3/uL (2.0-8.3); Neutrophils Percent Auto 58.1 % (45-73); Platelet Count 305 X10*3/uL (160-400); Red Blood Count 4.63 X10*6/uL (4.20-5.50); Red Cell Distribution Width 12.5 % (11.0-16.0); White Blood Count 5.8 X10*3/uL (4.8-10.8)
[2024-06-02 11:30] LABS: Estimated Average Glucose 114 mg/dL; Hemoglobin A1c % 5.6 % (<6.0); Total Hemoglobin (HGBA1C) 3590.4346 umol/L
[2024-06-02 11:40] LABS: Alanine Aminotransferase 23 U/L (0-31); Albumin Level 4.1 g/dL (3.5-5.0); Alkaline Phosphatase 47 U/L (39-117); Anion Gap 11 (12-20); Aspartate Amino Transferase 18 U/L (5-31); Bilirubin Total 0.3 mg/dL (0.0-1.0); Blood Urea Nitrogen 14 mg/dL (9-16); Calcium 9.6 mg/dL (8.4-10.2); Carbon Dioxide 22 mmol/L (22-29); Chloride 108 mmol/L (96-108); Cholesterol 198 mg/dL (<200); Estimated Glomerular Filt Rate > 60; Glucose Random 92 mg/dL (60-115); HDL Cholesterol 33 mg/dL (>40); LDL Cholesterol Calculated 136 mg/dL (<100); Potassium 3.8 mmol/L (3.3-5.1); Sodium 137 mmol/L (135-145); Total Protein 7.1 g/dL (6.5-8.0); Triglycerides 149 mg/dL (<150)
[2024-06-02 11:57] LABS: Creatinine Urine 19.25 mg/dL; Microalbum/Creatinine Ratio Ur 67.5 ug/mg cr (<30)
[2024-06-02 12:00] LABS: TSH reflex Free T4 1.01 uIU/mL (0.32-4.0)
== END 2024-06-02 08:58 | disposition home or self-care (01) ==
LOC: HO.WFDLDS 08:57
PROVIDERS: Visit Provider Physician Assistant
DX: E66.9 Obesity, unspecified (principal); E78.5 Hyperlipidemia, unspecified; R73.01 Impaired fasting glucose
CPT/HCPCS: 36415; 80053; 80061; 82043; 82570; 83036; 84443; 85025

== ENCOUNTER 2024-06-20 15:54 | Outpatient (AMB) | payer OTHER, SELFPAY ==
[2024-06-20 16:04] VITALS: BP 108/82; PULSE 78; O2SAT 95; BMI 31.6
--- NOTE | 2024-06-20 16:04 | AM.OFFVISNUR ---
Vital Signs 06/20/24 16:04 Height 5 ft 7 in Weight 202 lb BMI 31.6 BP 108/82 Blood Pressure Location Rt brachial Position Sitting Pulse 78 Pulse Source Pulse Oximeter Pulse Oximetry (%) 95 Oxygen Delivery Method Room Air Intake Visit Reasons: INP: Proteinuria Octave Board Racker Required: No Accompanied by: Self / Same As Patient Allergies No Known Allergies Allergy (Verified 06/20/24 16:07) Medication List - Last Reconciled 06/20/24 by Haja Calvillo MD albuterol sulfate 90 mcg/actuation 2 puffs inhalation Q6H PRN alendronate 70 mg PO QWEEK amitriptyline 10 mg PO BEDTIME beclomethasone dipropionate 40 mcg/actuation (Qvar RediHaler) 1 inh inhalation BID 30 days semaglutide (Ozempic) 2 mg (0.75 mL) subcut QWEEK Assessment & Plan Assessment & Plan Orders: Orders UA and rflx microscopic Today R80.9 - Proteinuria, unspecified Creatinine Urine Today R80.9 - Proteinuria, unspecified Total Protein Urine Random Today R80.9 - Proteinuria, unspecified Microalbumin, Random (w Creat) Today R80.9 - Proteinuria, unspecified Coding
--- NOTE | 2024-06-20 16:38 | HO.NEPHOV_ITS ---
Vital Signs 06/20/24 16:04 Height 5 ft 7 in Weight 202 lb BMI 31.6 BP 108/82 Blood Pressure Location Rt brachial Position Sitting Pulse 78 Pulse Source Pulse Oximeter Pulse Oximetry (%) 95 Oxygen Delivery Method Room Air Intake Visit Reasons: INP: Proteinuria Allergies No Known Allergies Allergy (Verified 06/20/24 16:07) Medication List - Last Reconciled 06/20/24 by Haja Calvillo MD albuterol sulfate 90 mcg/actuation 2 puffs inhalation Q6H PRN alendronate 70 mg PO QWEEK amitriptyline 10 mg PO BEDTIME beclomethasone dipropionate 40 mcg/actuation (Qvar RediHaler) 1 inh inhalation BID 30 days semaglutide (Ozempic) 2 mg (0.75 mL) subcut QWEEK HPI Comments Details: 58-year-old woman with a BMI of 31 who has been on Ozempic recently developed abdominal cramping and bloody diarrhea. This resolved. During this process she underwent a urine study which revealed urine microalbumin creatinine ratio of 64. Serum creatinine was 0.77. She has been referred for further evaluation [facility] Medical History (Updated 06/03/24 @ 14:52 by Tara Tapia PA-C) Osteoporosis TMJ (temporomandibular joint syndrome) Insomnia Generalized anxiety disorder Obesity (BMI 30.0-34.9) Colon polyp Hx of supraventricular tachycardia Asthma, mild intermittent, well-controlled Dyslipidemia IFG (impaired fasting glucose) Family History Father HTN (hypertension) Social History (Updated 03/30/24 @ 08:55 by Sindy Jamison CMA) Housing: House Alcohol intake: current Patient Tobacco Use Status: Former Tobacco user Cigarette Packs Per Day: 0.5 Years Smoked: 25 e-Cigarette/Vaping Use: Never Used Second Hand Smoke Exposure: No service: No Current occupational status: employed 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 Lungs entry equal no rales. Heart S1-S2 heard no gallop or rub. Abdomen soft nontender. Neuro alert awake oriented. No asterixis. Extremities no edema. Results Reviewed Nephrology Results: Hgb 13.8 g/dl (12.0-16.0) 06/02/24 WBC 5.8 X10*3/uL (4.8-10.8) 06/02/24 Plt Count 305 X10*3/uL (160-400) 06/02/24 Sodium 137 mmol/L (135-145) 06/02/24 Potassium 3.8 mmol/L (3.3-5.1) 06/02/24 Chloride 108 mmol/L (96-108) 06/02/24 Carbon Dioxide 22 mmol/L (22-29) 06/02/24 BUN 14 mg/dL (9-16) 06/02/24 Creatinine 0.77 mg/dL (0.5-1.4) 06/02/24 Calcium 9.6 mg/dL (8.4-10.2) 06/02/24 Urine Creatinine 19.25 mg/dL 06/02/24 Assessment & Plan Assessment & Plan (1) Microalbuminuria: Code(s): R80.9 - Proteinuria, unspecified Category: Medical Plan 58-year-old woman with mild obesity found to have microalbuminuria. Renal function is normal. Dehydration needs to be ruled out. Workup initiated including repeat urine protein creatinine ratio along with microalbuminuria and urinalysis as well Agree with Ozempic and weight loss. If she has persistent and microalbuminuria then it was worth considering adding an MADY inhibitor or ARB. Orders: Orders UA and rflx microscopic Today R80.9 - Proteinuria, unspecified Creatinine Urine Today R80.9 - Proteinuria, unspecified Total Protein Urine Random Today R80.9 - Proteinuria, unspecified Microalbumin, Random (w Creat) Today R80.9 - Proteinuria, unspecified Coding Level of Care Code New Pt Level 4 (96033) Diagnoses Microalbuminuria R80.9
--- OUTSIDE RECORDS SUMMARY | 2024-06-20 18:09 | XMS_ITS | Encounter Summary ---
[facility] Address [address] [place] [address] Care Team Providers Care Counseling Services Director Name Role Phone Yen Hemphill MD Primary Care Provider UnaWenceslao Voss MD Unavailable Unavailable Annika Rendon SHEETFED PRESS OPERATOR Unavailable [phone] Chepe Gonzalez MD Unavailable [phone] Antonella Jarrell MD [facility] Primary Care Provider UnavailYen Taylor MD Primary Care Provider Unameeta silvestre Encounter Details Date Type Department Care Team Description 06/15/2019 SCAN Medical Records [address] [place] [address] Annika Rendon, SHEETFED PRESS OPERATOR [address] [place] [address] [address] [place] [id number] Social History Tobacco Use Types Packs/Day Years Used Date Smoking Tobacco: Former Cigarettes 0.2 12 0 1981 - 04/27/2013 Smokeless Tobacco: Never Comments:light smoker 3-4 a day when she did Alcohol Use Standard Drinks/Week Comments Yes 2.5 (1 standard drin k = 0.6 oz pure alcohol) up to 8 per week, mostly social on weekends Sex Assigned at Date Recorded Female 08/11/2020 6:25 AM E DT Job Start Date Occupation Industry Not on file Not on file Not on file documented as of this encounter Plan of Treatment Not on file documented as of this encounter Procedures Procedure Name Priority Date/Time Associated Diagnosis Comments OUTSIDE EKG Routine 06/15/2019 documented in this encounter Results * OUTSIDE EKG (06/15/2019) Provider Default CARDIOLOGY documented in this encounter Visit Diagnoses Not on filedocumented in this encounter Care Teams Counseling Services Director Relationship Specialty Start Date End Date Yen Hemphill MD PCP - General Internal Medicine 02/10/12 09/16/21 Antonella Jarrell MD PCP - General Internal Medicine 09/17/21 12/22/21 [facility] [place] - General Internal Medicine 12/23/21 12/25/21 Yen Hemphill MD PCP - General Internal Medicine 12/26/21 Wenceslao Rodriguez MD Specialist Cardiovascular Disease 05/31/20 2 Annika Rendon NP Specialist Cardiology 01/16/21 12/25/21 Chepe Gonzalez MD Specialist Cardiology 08/15/21 documented as of this encounter
--- OUTSIDE RECORDS SUMMARY | 2024-06-20 18:09 | XMS_ITS | Encounter Summary ---
[facility] Organization [facility] Address [address] [place] [address] Care Team Providers Care Security Control Room Officer Name Role Phone Yen Hemphill MD Primary Care Provider Unava Wenceslao Stoddard MD Unavailable Unavailable Annika Rendon MANUAL LATHE OPERATOR Unavailable [phone] Chepe Gonzalez MD Unavailable [phone] Antonella Jarrell MD [facility] Primary Care Provider UnavailYen Taylor MD Primary Care Provider Unameeta silvestre Encounter Details Date Type Department Care Team Description 05/05/2018 Dietary Manager Report Medical Records [address] [place] [id number] Annika Rendon, MANUAL LATHE OPERATOR [address] [place] [address] Dr [address] [place] [id number] Social History Tobacco Use Types Packs/Day Years [...] on file documented as of this encounter Visit Diagnoses Not on filedocumented in this encounter Care Teams Security Control Room Officer Relationship Specialty Start Date End Date Yen Hemphill MD PCP - General Internal Medicine 02/10/12 09/16/21 Antonella Jarrell MD PCP - General Internal Medicine 09/17/21 12/22/21 [facility], Pcp PCP - General Internal Medicine 12/23/21 12/25/21 Yen Hemphill MD PCP - General Internal Medicine 12/26/21 Wenceslao Rodriguez MD Specialist Cardiovascular Disease 05/31/20 2 Annika Rendon NP Specialist Cardiology 01/16/21 12/25/21 Chepe Gonzalez MD Specialist Cardiology 08/15/21 documented as of this encounter
--- OUTSIDE RECORDS SUMMARY | 2024-06-20 18:09 | XMS_ITS | Encounter Summary ---
[facility] Organization [facility] Address [address] [place] [address] Care Team Providers Care Network Security Analyst Name Role Phone Yen Hemphill MD Primary Care Provider Unava ilable Wenceslao Rodriguez MD Unavailable Unavailable Annika Rendon NP Unavailable [phone] Chepe Gonzalez MD Unavailable [phone] Antonella Jarrell MD [facility] Yen Hemphill MD Primary Care Provider Unava ilable Reason for Visit * Reason Onset Date Comments TEST RESULTS 03/25/2016 Encounter Details Date Type Department Care Team Description 03/25/2016 Telephone Medicine/Pediatrics [address] [id number] Yen Hemphill MD TEST RESULTS Social History Tobacco Use Types Packs/Day Years Used Date Smoking Tobacco: Former Cigarettes 0.2 Smokeless Tobacco: Never Comments:light smoker 3-4 a day when she did Alcohol Use Standard Drinks/Week Comments Yes 2.5 (1 standard drink = 0.6 oz p ure alcohol) Sex Assigned at Date Recorded Female 08/11/2020 6:25 AM E DT Job Start Date Occupation Industry Not on file Not on file Not on file documented as of this encounter Miscellaneous Notes * Telephone Encounter - Aisha Neumann RN - 03/25/2016 1:08 PM EST Patient advised. * Telephone Encounter - Yen Hemphill MD - 03/25/2016 12:48 PM EST Xray w/ evidence of bursitis and tendonitis in the shoulder. No evidence of arthritis at this time. FYI to Amanda that pt notified as above. * Telephone Encounter - Nora Hernandez L.P.N. - 03/25/2016 9:52 AM EST Ortho ref has been placed Please review xray amanda is off * Telephone Encounter - Marissa Pate - 03/25/2016 9:41 AM EST Inform patient: ANY URGENT OR ABNORMAL RESULTS WIILL RESULT IN A CALL BACK TO THE PATIENT SHAHANA. Type of test: :xray of shoulder // Patient also asking about referral to ortho Date test was performed: 03/22/16 [place] [facility] [place] test?: Bernice Lopez Is the doctor here today?: NO Can the message wait until the doctor returns?: NO IF PATIENT'S PCP IS NOT IN INSTRUCT PATIENT THAT THEY WILL RECEIVE A CALL BACK WHEN THE PCP IS IN THE OFFICE NEXT. documented in this encounter Plan of Treatment Not on file documented as of this encounter Visit Diagnoses Not on filedocumented in this encounter Care Teams Network Security Analyst Relationship Specialty Start Date End Date Yen Hemphill MD PCP - General Internal Medicine 02/10/12 09/16/21 Antonella Jarrell MD PCP - General Internal Medicine 09/17/21 12/22/21 [facility], Pcp PCP - General Internal Medicine 12/23/21 12/25/21 Yne Hemphill MD PCP - General Internal Medicine 12/26/21 Wenceslao Rodriguez MD Specialist Cardiovascular Disease 05/31/20 2 Annika Rendon NP Specialist Cardiology 01/16/21 12/25/21 Chepe Gonzalez MD Specialist Cardiology 08/15/21 documented as of this encounter
--- OUTSIDE RECORDS SUMMARY | 2024-06-20 18:09 | XMS_ITS | Encounter Summary ---
Author Organization [facility] Address [address] [place] [address] Care Team Providers Care Nurse Informatics Educator Name Role Phone Yen Hemphill MD Primary Care Provider Unava Wenceslao Stoddard MD Unavailable Unavailable Annika Rendon NP Unavailable [phone] Chepe Gonzalez MD Unavailable Antonella Jarrell MD Primary Care Provider Sue serrato [facility] Primary Care Provider UnavailYen Taylor MD Primary Care Provider Marilia silvestre Encounter Details Date Type Department Care Team Description 03/26/2016 Jumpbasting Machine Operator Report Medical Records [address] [place] [id number] Wenceslao Rodriguez MD Social History Tobacco Use Types Packs/Day Years [...] on filedocumented in this encounter Care Teams Nurse Informatics Educator Relationship Specialty Start Date End Date Yen Hemphill MD PCP - General Internal Medicine 02/10/12 09/16/21 Antonella Jarrell MD PCP - General Internal Medicine 09/17/21 12/22/21 [facility] PCP - General Internal Medicine 12/23/21 12/25/21 Yen Hemphill MD PCP - General Internal Medicine 12/26/21 Wenceslao Rodriguez MD Specialist Cardiovascular Disease 05/31/20 2 Annika Rendon NP Specialist Cardiology 01/16/21 12/25/21 Chepe Gonzalez MD Specialist Cardiology 08/15/21 documented as of this encounter
--- OUTSIDE RECORDS SUMMARY | 2024-06-20 18:09 | XMS_ITS | Encounter Summary ---
Author Organization [facility] Address [address] [place] [address] Care Team Providers Care Laundry Folder Name Role Phone Yen Hemphill MD Primary Care Provider UnaWenceslao Voss MD Unavailable Unavailable Annika Rendon NP Unavailable [phone] Chepe Gonzalez MD Unavailable [phone] Antonella Jarrell MD Primary [facility] Primary Care Provider UnavailYen Taylor MD Primary Care Provider Unameeta silvestre Encounter Details Date Type Department Care Team Description 04/12/2020 [facility] Medical Records [address] [place] [id number] Social History Tobacco Use Types Packs/Day Years Used Date Smoking Tobacco: Former Cigarettes 0.2 12 0 1981 - 04/27/2013 Smokeless Tobacco: Never Comments:light smoker 3-4 a day in the past Alcohol Use Standard Drinks/Week Comments Yes 2.5 (1 standard drink = 0.6 oz p ure alcohol) 4 vodka/seltzer a week Sex Assigned at Date Recorded Female 08/11/2020 6:25 AM E DT Job Start Date Occupation Industry Not on file Not on file Not on file documented as of this encounter Plan of Treatment Not on file documented as of this encounter Procedures Procedure Name Priority Date/Time Associated Diagnosis Comments OUTSIDE EKG Routine 04/12/2020 OUTSIDE EKG Routine 04/12/2020 OUTSIDE PLAIN FILM Routine 04/12/2020 OUTSIDE LAB Routine 04/12/2020 documented in this encounter Results * OUTSIDE PLAIN FILM (04/12/2020) Provider Default RADIOLOGY * OUTSIDE LAB (04/12/2020) Provider Default LAB * OUTSIDE EKG (04/12/2020) Provider Default CARDIOLOGY * OUTSIDE EKG (04/12/2020) Provider Default CARDIOLOGY documented in this encounter Visit Diagnoses Not on filedocumented in this encounter Care Teams Laundry Folder Relationship Specialty Start Date End Date Yen Hemphill MD PCP - General Internal Medicine 02/10/12 09/16/21 Antonella Jarrlel MD PCP - General Internal Medicine 09/17/21 12/22/21 [facility], Pcp PCP - General Internal Medicine 12/23/21 12/25/21 Yen Hemphill MD PCP - General Internal Medicine 12/26/21 Wenceslao Rodriguez MD Specialist Cardiovascular Disease 05/31/20 2 Annika Rendon NP Specialist Cardiology 01/16/21 12/25/21 Chepe Gonzalez MD Specialist Cardiology 08/15/21 documented as of this encounter
--- OUTSIDE RECORDS SUMMARY | 2024-06-20 18:09 | XMS_ITS | Encounter Summary ---
Author Organization [facility] Address [address] [place] [address] Care Team Providers Care Chicken Tender Name Role Phone Yne Hemphill MD Primary Care Provider UnaWenceslao Voss MD Unavailable Unavailable Annika Rendon NP Unavailable [phone] Chepe Gonzalez MD Unavailable [phone] Antonella Jarrell MD Primary Care Provider Sue serrato [facility] Primary Care Provider UnavailYen Taylor MD Primary Care Provider Marilia silvestre Encounter Details Date Type Department Care Team Description 06/28/2015 Record Changer Report Medical Records [address] [place] [id number] Wenceslao Rodriguez MD Social History Tobacco Use [...] on filedocumented in this encounter Care Teams Chicken Tender Relationship Specialty Start Date End Date Yen [...]
--- OUTSIDE RECORDS SUMMARY | 2024-06-20 18:09 | XMS_ITS | Encounter Summary ---
Author Organization [facility] Address [address] [place] [address] Care Team Providers Care Manager Renewable Energy Name Role Phone Yen Hemphill MD Primary Care Provider Unava Wenceslao Stoddard MD Unavailable Unavailable Annika Rendon NP Unavailable [phone] Chepe Gonzalez MD Unavailable [phone] Antonella Jarrell MD Primary Care Provider [facility] Primary Care Provider [facility] Yen Varghese MD Primary Care Provider Marilia silvestre Encounter Details Date Type Department Care Team Description 04/09/2017 Independent Distributor Report Medical Records [address] [place] [id number] Wenceslao Rodriguez MD Social History Tobacco Use Types Packs/Day Years Used Date Smoking Tobacco: Former Cigarettes 0.2 12 0 1981 - 04/27/2013 Smokeless Tobacco: Never Comments:light smoker 3-4 a day when she did Alcohol Use Standard Drinks/Week Comments Yes 2.5 (1 standard drink = 0.6 oz p ure alcohol) 3-4 drinks per week Sex Assigned at Date Recorded Female 08/11/2020 6:25 AM E DT Job Start Date Occupation Industry Not on file Not on file Not on file documented as of this encounter Plan of Treatment Not on file documented as of this encounter Visit Diagnoses Not on filedocumented in this encounter Care Teams Manager Renewable Energy Relationship Specialty Start Date End Date Yen Hemphill MD PCP - General Internal Medicine 02/10/12 09/16/21 Antonella Jarrell MD PCP - General Internal Medicine 09/17/21 12/22/21 [facility], Pcp PCP - General Internal Medicine 12/23/21 12/25/21 Yen Hemphill MD PCP - General Internal Medicine 12/26/21 Wenceslao Rodriguez MD Specialist Cardiovascular Disease 05/31/20 2 Annika Rendon NP Specialist Cardiology 01/16/21 12/25/21 Chepe Gonzalez MD Specialist Cardiology 08/15/21 documented as of this encounter
--- OUTSIDE RECORDS SUMMARY | 2024-06-20 18:09 | XMS_ITS | Encounter Summary ---
[facility] Organization [facility] Address [address] [place] [address] Care Team Providers Care Survey Associate Name Role Phone Yen Hemphill MD Primary Care Provider Wenceslao Schaefer MD Unavailable Unavailable Annika Rendon NP Unavailable [phone] Chepe Gonzalez MD Unavailable [phone] Antonella Jarrell MD Primary Care Provider [facility] Primary Care Provider UnavailYen Taylor MD Primary Care Provider Marilia silvestre Encounter Details Date Type Department Care Team Description 07/13/2012 Transfer Records Medical Records [address] [place] [id number] Abstract, Provider Social History Tobacco Use Types Packs/Day Years Used Date Smoking Tobacco: Some Days Cigarettes 0.2 Smokeless Tobacco: Never Comments:3-4 cig a day Alcohol Use Standard Drinks/Week Comments Yes 2.5 [...] on filedocumented in this encounter Care Teams Survey Associate Relationship Specialty Start Date End Date Yen Hemphill MD PCP - General Internal Medicine 02/10/12 09/16/21 Antonella Jarrell MD PCP - General Internal Medicine 09/17/21 12/22/21 [facility] PCP - General Internal Medicine 12/23/21 12/25/21 Yen Hemphill MD PCP - General Internal Medicine 12/26/21 Wenceslao Rodriguez MD Specialist Cardiovascular Disease 05/31/20 2 Annika Rendon NP Specialist Cardiology 01/16/21 12/25/21 Chepe Gonzalez MD Specialist Cardiology 08/15/21 documented as of this encounter
--- OUTSIDE RECORDS SUMMARY | 2024-06-20 18:09 | XMS_ITS | Encounter Summary ---
Author Organization [facility] Address [address] [place] [address] Care Team Providers Care Account Support Specialist Name Role Phone Wenceslao Rodriguez MD Unavailable Unavailable Annika Rendon NP Unavailable [phone] Chepe Gonzalez MD Unavailable [phone] Antonella Jarrell MD [facility] Primary Care Provider UnavailYen Taylor MD Primary Care Provider Unava ilable Reason for Visit * Reason Comments E-prescribe Rx Request Encounter Details Date Type Department Care Team Description 12/22/2021 Refill Medicine/Pediatrics - [address] [id number] Mary Benitez, [address] [place] [address] E-prescribe Rx Request Social History Tobacco Use Types Packs/Day Years [...] encounter Miscellaneous Notes * Telephone Encounter - Tanvi Finney - 12/23/2021 3:00 PM EDT Pt is not part of david * Telephone Encounter - Jamal Arteaga - 12/23/2021 2:55 PM EDT Patient would like script to be: E-PRESCRIBED/FAXED TO PHARMACY WHEN WAS THE PATIENT'S LAST APPOINTMENT IN ADULT MEDICINE? 02/08/2021 WHEN WAS THE LAST TIME THE PATIENT SAW THEIR PCP? Does patient have an upcoming appointment? No-unable to reach left [facility] to call for appointment due to refill request and to change PCP. Appt due (THE MEDICATION REQUESTED IS ON THE MED LIST ABOVE) All of the medications requested were on the CURRENT MEDS list Did you check the Pharmacy information above?: YES Patient wants: 30 -day supply Is this a mail order prescription request ? NO If the refill is from a FAXED refill request what is the RX # listed on the fax? N/A Patients current insurance carrier is: Payor: [facility] / Plan: O $35 [id number] / Product Type: HMO [id number] documented in this encounter Plan of Treatment Not on file documented as of this encounter Visit Diagnoses Not on filedocumented in this encounter Care Teams Account Support Specialist Relationship Specialty Start Date End Date Antonella Jarrell MD PCP - General Internal Medicine 09/17/21 12/22/21 Colette Shay PCP - General Internal Medicine 12/23/21 12/25/21 Yen Hemphill MD PCP - General Internal Medicine 12/26/21 Wenceslao Rodriguez MD Specialist Cardiovascular Disease 05/31/20 2 Annika Rendon NP Specialist Cardiology 01/16/21 12/25/21 Chepe Gonzalez MD Specialist Cardiology 08/15/21 documented as of this encounter
--- OUTSIDE RECORDS SUMMARY | 2024-06-20 18:09 | XMS_ITS | Clinical Summary ---
Author Organization [facility] Address [address] [place] [address] Care Team Providers Care Pickle Processor Name Role Phone Chepe Gonzalez MD Unavailable Yen Hemphill MD Primary Care Provider Unava ilable Allergies No known active allergies Medications Medication Sig Dispensed Refills Start Date End Date Status [place]-3 Fatty Acids (FISH OIL CONCENTRATE OR) Take 1 Tab by mouth daily. 0 Active Calcium-Vitamins C & D (CALCIUM/C/D OR) Take by mouth 2 times daily. 0 Active fluticasone (Flovent HFA) 110 MCG/ACT inhaler Inhale 2 Puffs into the lungs 2 times daily. 8.5 g 0 02/08/2021 Active ALBUTEROL SULFATE 108 (90 Base) MCG/ACT Aero Soln Inhale 2 Puffs into the lungs every 4 hours as needed for Cough or Wheezing. 8.5 g 1 06/11/2021 Active alendronate (FOSAMAX) 70 MG tablet Take 70 mg by mouth daily. 0 11/08/2021 Active Active Problems Problem Noted Date S/P AV (atrioventricular) harsha ablation 12/23/2021 Overview: Done at [facility] on 11/29/21 with JPM Dyslipidemia 09/13/2021 PVC's (premature ventricular contraction s) 05/30/2020 PAC (premature atrial contraction) 05/30 AVNRT (AV harsha re-entry tachycardia) Overview: Recurrent symptomatic SVT. Termination with adenosine. Twelve-lead ECG confirmatory of AVNRT. Last Assessment & Plan: I discussed options which include catheter ablation, continued beta-justus therapy and use of antiarrhythmic agents. She would like to proceed with catheter ablation. I discussed the risks and benefits of all approaches. She understands a small risk of venous access complications and complete heart block requiring a pacemaker using the ablation approach. She understands a small risk of proarrhythmia or drug side effects from long-term suppression using antiarrhythmic agents. She is in agreement to proceed. She will hold her beta-justus 48 hours prior to the procedure. She will continue atenolol in the interim. Hypercholesteremia 07/05/2012 Last Assessment & Plan: Patient's last LDL cholesterol completed 01/2021 was 146. Patient is actively trying to lose weight and improving her diet. She will repeat a fasting lipid panel in a couple months to see if there is improvement. May consider starting medical therapy. Asthma 03/17/2011 Anxiety 03/17/2011 Tobacco use disorder 03/17/2011 Resolved Problems Problem Noted Date Resolved Date Palpitations 03/02/2015 09/13/2015 Immunizations Name Administration Dates Next Due COVID-19 (Wave - Private Location App) Pt Reported 10/09/2020, 021 Hepatitis B > 19yrs 06/03/2007,01/02/2006,2005 Influenza (> 6 Months) 01/05/2013,05/07/2012, Pneumoccoccal(Adult) Polysaccharide PPSV23 08/05 TD (STATE SUPPLIED FOR ADULTS AND CHILDREN) 01/25,06/29/1998 Tdap 10/30/2010 Family History Medical History Relation Name Comments Hypercholesterolemia Father Hypertension Father CA of Pancreas Father's side not sure of primary, could be kidney uterine can Maternal Grandmother possibl y uterine cancer Hypercholesterolemia Mother Hypertension Mother Osteoporosis Mother Uterine Cancer Mother's side 1 Great Aunt CA Ovarian Mother's side 2 Aunt Arrthymogenic Right Ventricu lar Cardiomyopathy. Other niece Relation Name Status Comments Brother Alive Jackson; healthy Father (Age 71) mesothelio ma Father's side Maternal Grandmother Mother Alive depression, HTN , chol Mother's side 1 Mother's side 2 Other Sister 1 Alive Kate; anorex ia/bulemia Sister 2 Alive Lavonne; healthy Sister 3 Alive Daria; health y Son Alive Colin; 2000;; h ealthy Social History Tobacco Use Types Packs/Day Years [...] file Not on file Not on file Last Filed Vital Signs Vital Sign Reading Time Taken Comments Blood Pressure 110/76 12/26/2021 3:10 PM EDT Pulse 71 12/26/2021 3:10 PM EDT Temperature 36.6 ??C (97.9 ??F) 02/08/2021 3:23 PM ED T Respiratory Rate 14 02/08/2021 3:23 PM EDT Oxygen Saturation 98% 12/26/2021 3:10 PM EDT Inhaled Oxygen Concentration - - Weight 92.1 kg (203 lb) 12/26/2021 3:10 PM EDT Height 170.2 cm (5' 7 ) 12/26/2021 3:10 PM EDT Body Mass Index 31.79 12/26/2021 3:10 PM EDT Plan of Treatment Health Maintenance Due Date Last Done Comments SHINGLES VACCINE (1 of 2) 2016 MAMMOGRAM 04/26/2021 04/26/2020, 03/27 (External Completion), 04/23/2018, Additional history exists COLON CANCER SCREENING 05/20/2021 05/20/2016 BASELINE HEALTH EXAM 40-64 02/08/202302/08, 02/08/2021, 01/13/2020, Additional history exists CERVICAL CANCER SCREENING 06/27/20232020 (External Completion), 04/07/2017 (External Completion), 04/18/2014 (External Completion), Additional history exists Covid-19 Vaccine ( - 2022-2 4 season) 2023 10/09/2020, 09/13/2020 INFLUENZA (#1) 2023 01/05/2013, 04/27, 02/12/2009 BMI CHECK/ADVISE 04/27/2024 02/08/2021, , 11/04/2018, Additional history exists CHOLESTEROL SCREENING 02/08/2026 02/08/2021 , 01/13/2020, 11/10/2018, Additional history exists DTAP/TDAP/TD (3 - Td or Tdap) 02/08/2031, 10/30/2010, 06/29/1998 PNEUMOCOCCAL VACCINE FOR HIG H RISK PATIENTS (#2) 08/28/2031 08/05/2013 HEPATITIS C SCREENING Completed 01/13/2020 Care Teams Pickle Processor Relationship Specialty Start Date End Date Yen Hemphill MD PCP - General Internal Medicine 12/26/21 Chepe Gonzalez MD Specialist Cardiology 08/15/21
--- OUTSIDE RECORDS SUMMARY | 2024-06-20 18:09 | XMS_ITS | Encounter Summary ---
Author Organization [facility] Address [address] [place] [address] Care Team Providers Care Weigher Alloy Name Role Phone Yen Hemphill MD Primary Care Provider Unava Wenceslao Stoddard MD Unavailable Unavailable Annika Renodn NP Unavailable [phone] Chepe Gonzalez MD Unavailable [phone] Antonella Jarrell MD Primary [facility] Yen Hemphill MD Primary Care Provider Unameeta silvestre Encounter Details Date Type Department Care Team Description 09/13/2014 Pt. Non Urgent Medic al Question Medicine/Pediatrics - [address] [address] Kathryn Mejia PA-C Social History Tobacco Use Types Packs/Day Years [...] on file documented as of this encounter Progress Notes * Aniyah Benjamin Rn - 09/14/2014 9:27 AM EDTFrom: Victorino Hernandez To: Kathryn Marin PA-C Sent: 09/13/2014 6:56 PM EDT Subject: Dr. Migue Peralta. Was wondering if you had the results of my two test on 09/01? Holter and ultrasound. documented in this encounter Plan of Treatment Not on file documented as of this encounter Visit Diagnoses Not on filedocumented in this encounter Care Teams Weigher Alloy Relationship Specialty Start Date End Date Yen Hemphill MD PCP - General Internal Medicine 02/10/12 09/16/21 Antonella Jarrell MD PCP - General Internal Medicine 09/17/21 12/22/21 [facility], Pcp PCP - General Internal Medicine 12/23/21 12/25/21 Yen Hemphill MD PCP - General Internal Medicine 12/26/21 Wenceslao Rodriguez MD Specialist Cardiovascular Disease 05/31/20 2 Annika Rendon NP Specialist Cardiology 01/16/21 12/25/21 Chepe Gonzalez MD Specialist Cardiology 08/15/21 documented as of this encounter
--- OUTSIDE RECORDS SUMMARY | 2024-06-20 18:09 | XMS_ITS | Encounter Summary ---
Author Organization [facility] Address [address] [place] [address] Care Team Providers Care Financial Foundations Associate Name Role Phone Yen Hemphill MD Primary Care Provider Wenceslao Schaefer MD Unavailable Unavailable Annika Rendon NP Unavailable [phone] Chepe Gonzalez MD Unavailable [phone] Antonella Jarrell MD Primary [facility] Primary Care Provider Unavailaiden Yen Hemphill MD Primary Care Provider Marilia silvestre Encounter Details Date Type Department Care Team Description 09/04/2021 [facility] Medical Records [address] [place] [address] Abstract, Provider Social History Tobacco Use Types [...] file Not on file Not on file COVID-19 Exposure Response Date Recorded In the last 10 days, have yo u been in contact with someone who was confirmed or suspected to have Coronavirus/COVID-19? No / Unsure 08/15/2021 8:15 AM EDT documented as of this encounter Plan of Treatment Not on file documented as of this encounter Procedures Procedure Name Priority Date/Time Associated Diagnosis Comments OUTSIDE LAB Routine 09/04/2021 documented in this encounter Results * OUTSIDE LAB (09/04/2021) Provider Abstract LAB documented in this encounter Visit Diagnoses Not on filedocumented in this encounter Care Teams Financial Foundations Associate Relationship Specialty Start Date End Date Yen Hemphill MD PCP - General Internal Medicine 02/10/12 09/16/21 Antonella Jarrell MD PCP - General Internal Medicine 09/17/21 12/22/21 [facility], Pcp PCP - General Internal Medicine 12/23/21 12/25/21 Yen Hemphill MD PCP - General Internal Medicine 12/26/21 Wenceslao Rodriguez MD Specialist Cardiovascular Disease 05/31/20 2 Annika Rendon NP Specialist Cardiology 01/16/21 12/25/21 Chepe Gonzalez MD Specialist Cardiology 08/15/21 documented as of this encounter
--- OUTSIDE RECORDS SUMMARY | 2024-06-20 18:09 | XMS_ITS | Encounter Summary ---
Author Organization [facility] Address [address] [place] [address] Care Team Providers Care Cordwainer Name Role Phone Yen Hemphill MD Primary Care Provider Unava Wenceslao Stoddard MD Unavailable Unavailable Annika Rendon NP Unavailable [phone] Chepe Gonzalez MD Unavailable [phone] Antonella Jarrell MD Primary Care Provider [facility] Provider [facility] Yen Varghese MD Primary Care Provider Marilia silvestre Encounter Details Date Type Department Care Team Description 10/08/2016 Engine Wiper Report Medical Records [address] [place] [address] Wenceslao Rodriguez MD Social History Tobacco Use [...] on filedocumented in this encounter Care Teams Cordwainer Relationship Specialty Start Date End Date Yen Hemphill MD PCP - General Internal Medicine 02/10/12 09/16/21 Antonella Jarrell MD PCP - General Internal Medicine 09/17/21 12/22/21 [facility], Pcp PCP - General Internal Medicine 12/23/21 12/25/21 Yen Hemphill MD PCP - General Internal Medicine 12/26/21 Wenceslao Rodriguez MD Specialist Cardiovascular Disease 05/31/20 2 Annika Rendon NP Specialist Cardiology 01/16/21 12/25/21 Chepe Gonzalez MD Specialist Cardiology 08/15/21 documented as of this encounter
--- OUTSIDE RECORDS SUMMARY | 2024-06-20 18:09 | XMS_ITS | Encounter Summary ---
Author Organization [facility] Address [address] [place] [address] Care Team Providers Care Dog Sitter Name Role Phone Yen Hemphill MD Primary Care Provider UnaWenceslao Voss MD Unavailable Unavailable Annika Rendon NP Unavailable [phone] Chepe Gonzalez MD Unavailable [phone] Antonella Jarrell MD [facility] Primary Care Provider UnavailYen Taylor MD Primary Care Provider Marilia silvestre Encounter Details Date Type Department Care Team Description 04/15/2016 Continuous Improvement Specialist Report Medical Records [address] [place] [address] Dmitry Clinton PA-C Social History Tobacco Use Types Packs/Day [...] on filedocumented in this encounter Care Teams Dog Sitter Relationship Specialty Start Date End Date Yen [...]
== END 2024-06-20 16:28 | disposition home or self-care (01) ==
PROVIDERS: PCP Physician Assistant; Referring Provider Physician Assistant; Visit Provider Internal Medicine Hypertension Specialist
DX: R80.9 Proteinuria, unspecified (principal)
CPT/HCPCS: 99204

== ENCOUNTER 2024-06-21 10:43 | Outpatient (REF) | payer OTHER, SELFPAY ==
[2024-06-21 14:27] LABS: Appearance Urine Clear; Color Urine Yellow; Glucose Urine UA Negative (Negative); Leukocyte Esterase Urine Trace (Negative); Nitrite Urine Negative (Negative); Specific Gravity - Urine <= 1.005 (1.005-1.025); UMIC TRIGGER UA YES; Urine Blood Negative (Negative); Urine Ketones Negative (Negative); Urine Protein Negative (Neg-Trace)
[2024-06-21 14:30] LABS: Bacteria Urine None Seen (None Seen); Hyaline Casts Urine 0-2 /LPF (0-2); RBC Urine 0-2 /HPF (0-2); Squamous Epithelial Cell Urine 0-2 /HPF (0-2); WBC Urine 0-5 /HPF (0-5)
[2024-06-21 14:49] LABS: Creatinine Urine 21.55 mg/dL
[2024-06-21 14:57] LABS: Creatinine Urine 22.63 mg/dL; Microalbumin Urine < 5.0 mg/L; Total Protein Urine Random < 7 mg/dL (<12)
== END 2024-06-21 10:44 | disposition home or self-care (01) ==
LOC: HO.WFDLDS 10:43
PROVIDERS: Visit Provider Internal Medicine Hypertension Specialist
DX: R80.9 Proteinuria, unspecified (principal)
CPT/HCPCS: 81001; 82570; 84156

== ENCOUNTER 2024-06-22 11:13 | Outpatient (REF) | payer OTHER, SELFPAY ==
--- NOTE | ~2024-06-22 | CT_ITS ---
CLINICAL HISTORY: K62.5 - Hemorrhage of anus and rectum CT abdomen and pelvis with contrast Comparison: None Findings: No consolidation or effusion. The liver, gallbladder, spleen, adrenal glands and pancreas are unremarkable. Kidneys, ureters and bladder are within normal limits. The uterus and adnexa are normal. Normal appendix. No bowel obstruction or free air. Mild fecal retention within the colon. No acute osseous finding. Impression: No acute process by CT. Mild fecal retention throughout the colon. This document has been electronically signed by: Kristopher Harper MD on 06/23/2024 11:25:32
[2024-06-22] MEDS: iohexoL 350 MG/ML 100 ML INFUS..BTL IV (13:57)
[2024-06-22] MEDS: Barium Sulfate Oral (Vanilla) 450 ML ORAL.SUSP 900 ML PO (13:58)
== END 2024-06-22 11:14 | disposition home or self-care (01) ==
LOC: HO.CT 11:13
PROVIDERS: PCP Physician Assistant; Visit Provider Physician Assistant
DX: R10.30 Lower abdominal pain, unspecified (principal); K62.5 Hemorrhage of anus and rectum
CPT/HCPCS: 74177; Q9967

== ENCOUNTER → 2024-06-22 11:15 | Outpatient (BNV) | payer OTHER, SELFPAY | PROVIDERS: PCP Physician Assistant; Visit Provider Radiology Vascular & Interventional Radiology | DX: K62.5 Hemorrhage of anus and rectum (principal) | CPT/HCPCS: 74177 ==

== ENCOUNTER 2024-07-05 11:28 | Outpatient (AMB) | payer OTHER, SELFPAY ==
--- NOTE | 2024-07-05 11:32 | HO.NEPHOV ---
Vital Signs 07/05/24 11:33 Height 5 ft 7 in Weight 196 lb BMI 30.7 BP 100/72 Blood Pressure Location Lt brachial Position Sitting Pulse 84 Pulse Source Pulse Oximeter Pulse Oximetry (%) 95 Oxygen Delivery Method Room Air Intake Visit Reasons: Proteinuria/ Conf Rough Rice Tender Required: No Accompanied by: Self / Same As Patient Allergies No Known Allergies Allergy (Verified 07/05/24 11:34) HPI Comments Details: 58-year-old woman with a BMI of 31 who has been on Ozempic recently developed abdominal cramping and bloody diarrhea. This resolved. During this process she underwent a urine study which revealed urine microalbumin creatinine ratio of 64. Serum creatinine was 0.77. She has been referred for further evaluation [facility] Medical History (Updated 06/03/24 @ 14:52 by Tara Tapia PA-C) Osteoporosis TMJ (temporomandibular joint syndrome) Insomnia Generalized anxiety disorder Obesity (BMI 30.0-34.9) Colon polyp Hx of supraventricular tachycardia Asthma, mild intermittent, well-controlled Dyslipidemia IFG (impaired fasting glucose) Family History Father HTN (hypertension) Social History Housing: House Alcohol intake: current Patient Tobacco Use Status: Former Tobacco user Cigarette Packs Per Day: 0.5 Years Smoked: 25 e-Cigarette/Vaping Use: Never Used Second Hand Smoke Exposure: No service: No Current occupational status: employed 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 Lungs entry equal no rales. Heart S1-S2 heard no gallop or rub. Abdomen soft nontender. Neuro alert awake oriented. No asterixis. Extremities no edema. Results Reviewed Nephrology Results: Hgb 13.8 g/dl (12.0-16.0) 06/02/24 WBC 5.8 X10*3/uL (4.8-10.8) 06/02/24 Plt Count 305 X10*3/uL (160-400) 06/02/24 Sodium 137 mmol/L (135-145) 06/02/24 Potassium 3.8 mmol/L (3.3-5.1) 06/02/24 Chloride 108 mmol/L (96-108) 06/02/24 Carbon Dioxide 22 mmol/L (22-29) 06/02/24 BUN 14 mg/dL (9-16) 06/02/24 Creatinine 0.77 mg/dL (0.5-1.4) 06/02/24 Calcium 9.6 mg/dL (8.4-10.2) 06/02/24 Urine Protein Negative mg/dL (Neg-Trace) 06/21/24 Urine Creatinine 22.63 mg/dL 06/21/24 Assessment & Plan Assessment & Plan (1) Microalbuminuria: Code(s): R80.9 - Proteinuria, unspecified Category: Medical Plan 58-year-old woman with mild obesity found to have microalbuminuria. Renal function is normal. Dehydration needs to be ruled out. Repeat urinalysis did not reveal any protein. There was no microalbuminuria based on microalbumin creatinine ratio. No further workup is needed at this time Agree with Ozempic and weight loss. Coding Level of Care Code Est Pt Level 4 (49382) Diagnoses Microalbuminuria R80.9
[2024-07-05 11:33] VITALS: BP 100/72; PULSE 84; O2SAT 95; BMI 30.7
== END 2024-07-05 11:42 | disposition home or self-care (01) ==
LOC: HO.HKA 11:29
PROVIDERS: PCP Physician Assistant; Visit Provider Internal Medicine Hypertension Specialist
DX: R80.9 Proteinuria, unspecified (principal)
CPT/HCPCS: 99214

== ENCOUNTER → 2024-07-05 11:28 | Outpatient (BNVA) | payer OTHER, SELFPAY | PROVIDERS: PCP Physician Assistant; Visit Provider Internal Medicine Hypertension Specialist ==

== ENCOUNTER 2024-08-24 12:17 | Outpatient (AMB) | payer OTHER, SELFPAY ==
[2024-08-24 12:20] VITALS: BP 109/53; PULSE 76; O2SAT 97; BMI 31.1
--- NOTE | 2024-08-24 12:20 | A.OFFVIS_ITS ---
Vital Signs 08/24/24 12:20 Height 5 ft 7 in Weight 198 lb 6.656 oz BMI 31.1 BP 109/53 L Blood Pressure Location Lt brachial Position Sitting Pulse 76 Pulse Source Pulse Oximeter Pulse Oximetry (%) 97 Oxygen Delivery Method Room Air Intake Visit Reasons: Hemorrhage rectum Intake Note: Pt presents to the office today for c/o a rectal hemorrhage. Allergies No Known Allergies Allergy (Verified 08/24/24 12:22) HPI Comments Details: 58 y.o F with PMH of obesity, osteoporosis who is here for an episode of rectal bleeding x 2 months ago. Reports 2 months ago was sick and having a lot of dry heaving and vomiting. Accompanied by blood on wiping and eventually diarrhea which had reddish streaks in it. Did not have any fevers or chills. Lasted almost a day. Since then has been doing well. No abd pain, N,V,D. Stool is regular has 3-4 times a week. [place] April 2022 (Dr. Duncan): Hyperplastic sigmoid polyp. [place] 2016 (Eula): transverse colon sessile serrated polyp. 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 Current occupational exposures/hazards: No Cognitive needs: No Hearing needs: No Vision needs: No Review of Systems Const All systems reviewed & are unremarkable except as noted in HPI and below Physical Exam Vital Signs: Last Vital Signs Pulse 76 08/24/24 12:20 BP 109/53 L 08/24/24 12:20 Pulse Ox 97 08/24/24 12:20 Oxygen Delivery Method Room Air 08/24/24 12:20 BMI result Body Mass Index 31.1 No apparent distress Nonicteric Abdomen soft, nondistended Alert and oriented x3, normal gait Assessment & Plan Assessment & Plan (1) Rectal bleeding: Code(s): K62.5 - Hemorrhage of anus and rectum Category: Medical (2) Lower abdominal pain: Code(s): R10.30 - Lower abdominal pain, unspecified Category: Medical Plan Reviewed with the patient that self-limiting 1 time episode of rectal bleeding was likely secondary to infectious gastroenteritis versus hemorrhoidal bleeding. No other red flags however, given previous history of polyps, can consider repeat colonoscopy to rule out large friable polyp, mass, proctitis etc. In terms of prep, she would like to avoid the 2 part prep she had last time. Unable to recall today, will check with the pharmacy and let us know through the portal. Plan: -nonurgent colonoscopy will be booked -patient leaning towards MiraLax/Gatorade prep, would let us know through the portal -she is aware to hold her Zepbound 1 week before the procedure Follow-up after colo as needed Coding Level of Care Code New Pt Level 4 (46117) Diagnoses Rectal bleeding K62.5 Lower abdominal pain R10.30
--- OUTSIDE RECORDS SUMMARY | 2024-08-24 13:40 | XMS_ITS | Encounter Summary ---
Author Organization [facility] Address [address] [place] [address] Care Team Providers Care Banana Expert Name Role Phone Yen Hemphill MD Primary Care Provider Wenceslao Schaefer MD Unavailable Unavailable Annika Rendon NP Unavailable [phone] Cheep Gonzalez MD Unavailable [phone] Antonella Jarrell MD Primary Care Provider Sue serrato [facility], Pcp Primary Care Provider Yen Foss MD Primary Care Provider Marilia silvestre Encounter Details Date Type Department Care Team Description 07/13/2012 Transfer Records Medical Records [address] [place] [id number] Abstract, Provider Social History Tobacco Use Types [...] on filedocumented in this encounter Care Teams Banana Expert Relationship Specialty Start Date End Date Yen Hemphill MD PCP - General Internal Medicine 02/10/12 09/16/21 Antonella Jarrell MD PCP - General Internal Medicine 09/17/21 12/22/21 [facility], Pcp PCP - General Internal Medicine 12/23/21 12/25/21 Yen Hemphill MD PCP - General Internal Medicine 12/26/21 Wenceslao Rodriguez MD Specialist Cardiovascular Disease 05/31/20 2 Annika Rendon NP Specialist Cardiology 01/16/21 12/25/21 Chepe Gonzalez MD Specialist Cardiology 08/15/21 documented as of this encounter
--- OUTSIDE RECORDS SUMMARY | 2024-08-24 13:40 | XMS_ITS | Encounter Summary ---
Author Organization [facility] Address [address] [place] [address] Care Team Providers Care Engraver Picture Name Role Phone Wenceslao Rodriguez MD Unavailable Unavailable Annika Rendon NP Unavailable [phone] Chepe Gonzalez MD Unavailable [phone] Antonella Jarrell MD [facility] Primary Care Provider UnavailYen Taylor MD Primary Care Provider Unava ilable Reason for Visit * Reason Comments E-prescribe Rx Request Encounter Details Date Type Department Care Team Description 12/22/2021 Refill Medicine/Pediatrics - [address] [id number] Mary Benitez, [address] [place] [address] E-prescribe Rx Request Social History Tobacco Use [...] an upcoming appointment? No-unable to reach left [facility] to call for appointment due to refill [...] N/A Patients current insurance carrier is: Payor: [facility] / Plan: O $35 INDUSTR[employer] [id number] / Product Type: HMO [id number] documented in this encounter Plan of Treatment Not on file documented as of this encounter Visit Diagnoses Not on filedocumented in this encounter Care Teams Engraver Picture Relationship Specialty Start Date End Date Antonella [...]
--- OUTSIDE RECORDS SUMMARY | 2024-08-24 13:40 | XMS_ITS | Encounter Summary ---
Author Organization Amber [employer] [facility] Address [address] [place] [address] Care Team Providers Care Radio Announcer Name Role Phone Wenceslao Rodriguez MD Unavailable Unavailable Annika Rendon NP Unavailable [phone] Chepe Gonzalez MD Unavailable [phone] Antonella Jarrell MD Primary Care Provider Sue Shay, Pcp Primary Care Provider Yen Foss MD Primary Care Provider Unava ilable Encounter Details Date Type Department Care Team Description 11/29/2021 [facility] Medical Records [address] [place] [id number] [place] [address] Social History Tobacco Use Types Packs/Day Years [...] on filedocumented in this encounter Care Teams Radio Announcer Relationship Specialty Start Date End Date Antonella Jarrell MD PCP - General Internal Medicine 09/17/21 12/22/21 [facility], Pcp PCP - General Internal Medicine 12/23/21 12/25/21 Yen Hemphill MD PCP - General Internal Medicine 12/26/21 Wencesloa Rodriguez MD Specialist Cardiovascular Disease 05/31/20 2 Annika Rendon NP Specialist Cardiology 01/16/21 12/25/21 Chepe Gonzalez MD Specialist Cardiology 08/15/21 documented as of this encounter
--- OUTSIDE RECORDS SUMMARY | 2024-08-24 13:40 | XMS_ITS | Clinical Summary ---
Author Organization [facility] Address [address] [place] [address] Care Team Providers Care Assembler Seat Name Role Phone Chepe Gonzalez MD Unavailable [phone] Yen Hemphill MD Primary Care Provider Unava ilable Allergies No known active allergies Medications Medication Sig Dispensed Refills Start Date End Date Status Bassett-3 Fatty Acids (FISH OIL CONCENTRATE OR) Take [...] (atrioventricular) harsha ablation 12/23/2021 Overview: Done at [facility] on 11/29/21 with JPM Dyslipidemia 09/13/2021 PVC's [...] Immunizations Name Administration Dates Next Due COVID-19 ([employer]) Pt Reported 10/09/2020, 021 Hepatitis B > [...] (External Completion), Additional history exists Covid-19 Vaccine (2022-2 4 season) 2023 10/09/2020, 09/13/2020 BMI CHECK/ADVISE 04/27/2024 02/08/2021, , 11/04/2018, Additional history exists INFLUENZA (Season Ended) 2024 013, 05/07/2012, 02/12/2009 CHOLESTEROL SCREENING 02/08/2026 02/08/2021 , 01/13/2020, 11/10/2018, Additional history exists DTAP/TDAP/TD (3 - Td or Tdap) 02/08/2031, 10/30/2010, 06/29/1998 PNEUMOCOCCAL VACCINE FOR HIG H RISK PATIENTS (#2) 08/28/2031 08/05/2013 HEPATITIS C SCREENING Completed 01/13/2020 Care Teams Assembler Seat Relationship Specialty Start Date End Date Yen Hemphill MD PCP - General Internal Medicine 12/26/21 Chepe Gonzalez MD Specialist Cardiology 08/15/21
--- OUTSIDE RECORDS SUMMARY | 2024-08-24 13:40 | XMS_ITS | Encounter Summary ---
Author Organization [facility] Address [address] [place] [address] Care Team Providers Care Inventory Management Specialist Name Role Phone Wenceslao Rodriguez MD Unavailable Unavailable Annika Rendon NP Unavailable [phone] Chepe Gonzalez MD Unavailable [phone] Antonella Jarrell MD Primary Care Provider Unavailgloria Shay Colette Primary Care Provider UnavailYen Taylor MD Primary Care Provider Unava ilable Reason for Visit * Reason Onset Date Comments Hospital Procedure 09/24/2021 SVT Ablation 8.5.22 Encounter Details Date Type Department Care Team Description 09/24/2021 Telephone Cardio PVC POC [address] [facility] [address] [place] [address] Chepe Gonzalez MD [address] [place] [address] [phone] Hospital Procedure (SVT Ablation 8.5.22) Social History Tobacco Use Types Packs/Day Years [...] Recorded In the last 10 days, have abdi aponte been in contact with someone who was confirmed or suspected to have Coronavirus/COVID-19? No / Unsure 09/17/2021 11:20 AM EDT documented as of this encounter Miscellaneous Notes * Telephone Encounter - Alberta Ambrocio - 10/30/2021 8:43 AM EDT Per fax back from [facility] [place] [id number] * Telephone Encounter - Anna Salazar C.M.A. - 09/24/2021 12:09 PM EDT SVT Ablation [id number] Dx SVT I49.1 w/ JPM at [facility] on 11.29.21 * Telephone Encounter - Anna Salazar C.M.A. - 09/24/2021 12:02 PM EDT Spoke with patient about procedure. Scheduled on 11.29.21 w/ JPM at [facility] at 11am Mailing packet to patient today Packet mailed to patient includes instructions with medications, follow-up, lab orders, pre/post procedural care and pamphlet for procedure. Confirmed address on file Arrival time 10am B/w to be done week of 11.18.21 at any lab of choice (Labs are not fasting) Medication instructions are to hold ATENOLOL 48 hours before procedure You can take all other medications with some water These instructions are given verbal and written and understood Patient will have to be fasting from midnight night before procedure. Patient made aware that they will need to make arrangements for someone to drive to and from the hospital for the procedure Patient is to report to [facility] to the 3rd floor Patient agreed to all inst and date, time and location above via phone while booking procedure. Booking sheet and confirmation received. documented in this encounter Plan of Treatment Not on file documented as of this encounter Visit Diagnoses Diagnosis Paroxysmal supraventricular tachycardia (HCC)- Primary Paroxysmal supraventricular tachycardia documented in this encounter Care Teams Inventory Management Specialist Relationship Specialty Start Date End Date [...]
--- OUTSIDE RECORDS SUMMARY | 2024-08-24 13:40 | XMS_ITS | Encounter Summary ---
Author Organization [facility] Address [address] [place] [address] Care Team Providers Care Registered Representative Name Role Phone Yen Hemphill MD Primary Care Provider Unava Wenceslao Stoddard MD Unavailable Unavailable Annika Rendon HEARING AND SPEECH ASSISTANT Unavailable [phone] Chepe Gonzalez MD Unavailable [phone] Antonella Jarrell MD Primary [facility] Primary Care Provider UnavailYen Taylor MD Primary Care Provider Unameeta silvestre Encounter Details Date Type Department Care Team Description 06/15/2019 Folding Machine Tender Report Medical Records [address] [place] [address] Annika Rendon, HEARING AND SPEECH ASSISTANT [address] [place] [address] Dr [address]res [address] [place] [id number] Social History Tobacco Use Types Packs/Day Years [...] on filedocumented in this encounter Care Teams Registered Representative Relationship Specialty Start Date End Date Yen Hemphill MD PCP - General Internal Medicine 02/10/12 09/16/21 Antonella Jarrell MD PCP - General Internal Medicine 09/17/21 12/22/21 [facility], Pcp PCP - General Internal Medicine 12/23/21 12/25/21 Yen Hemphill MD PCP - General Internal Medicine 12/26/21 Wenceslao Rodriguez MD Specialist Cardiovascular Disease 05/31/20 2 Annika Rendon NP Specialist Cardiology 01/16/21 12/25/21 Chepe Gonzalez MD Specialist Cardiology 08/15/21 documented as of this encounter
--- OUTSIDE RECORDS SUMMARY | 2024-08-24 13:41 | XMS_ITS | Encounter Summary ---
Author Organization Amber [facility] Address [address] [place] [address] Care Team Providers Care Ict Project Manager Name Role Phone Yen Hemphill MD Primary Care Provider Unava Wenceslao Stoddard MD Unavailable Unavailable Annika Rendon NP Unavailable [phone] Chepe Gonzalez MD Unavailable [phone] Antonella Jarrell MD Primary Care Provider [facility] Primary Care Provider [facility] Yen Varghese MD Primary Care Provider Marilia silvestre Encounter Details Date Type Department Care Team Description 04/09/2017 Seed Cutter Report Medical Records [address] [place] [phone] Wenceslao Rodriguez MD Social History Tobacco Use [...] on filedocumented in this encounter Care Teams Ict Project Manager Relationship Specialty Start Date End Date Yen Hemphill MD PCP - General Internal Medicine 02/10/12 09/16/21 Antonella Jarrell MD PCP - General Internal Medicine 09/17/21 12/22/21 [facility], Pcp PCP - General Internal Medicine 12/23/21 12/25/21 Yen Hemphill MD PCP - General Internal Medicine 12/26/21 Wenceslao Rodriguez MD Specialist Cardiovascular Disease 05/31/20 2 Annika Rendon NP Specialist Cardiology 01/16/21 12/25/21 Chepe Gonzalez MD Specialist Cardiology 08/15/21 documented as of this encounter
--- OUTSIDE RECORDS SUMMARY | 2024-08-24 13:41 | XMS_ITS | Encounter Summary ---
Author Organization Amber [employer] [facility] Address [address] [place] [address] Care Team Providers Care Principal Network Architect Name Role Phone Yen Hemphill MD Primary Care Provider Unava Wenceslao Stoddard MD Unavailable Unavailable Annika Rendon NP Unavailable [phone] Chepe Gonzalez MD Unavailable [phone] Antonella Jarrell MD Primary Care Provider Sue serrato [facility] Primary Care Provider UnavailYen Taylor MD Primary Care Provider Marilia silvestre Encounter Details Date Type Department Care Team Description 03/26/2016 Lapping Machine Tender Report Medical Records [address] [place] [address] Wenceslao Rodriguez MD Social History Tobacco Use [...] on filedocumented in this encounter Care Teams Principal Network Architect Relationship Specialty Start Date End Date Yen [...]
--- OUTSIDE RECORDS SUMMARY | 2024-08-24 13:41 | XMS_ITS | Encounter Summary ---
Author Organization [facility] Address [address] [place] [address] Care Team Providers Care Photo Colorer Name Role Phone Yen Hemphill MD Primary Care Provider Wenceslao Schaefer MD Unavailable Unavailable Annika Rendon NP Unavailable [phone] Chepe Gonzalez MD Unavailable [phone] Antonella Jarrell MD Primary Care Provider Sue serrato [facility], Pcp Primary Care Provider Yen Foss MD Primary Care Provider Marilia silvestre Encounter Details Date Type Department Care Team Description 02/21/2015 Release of Information Medical Records [address] [place] [id number] Abstract, Provider Social History Tobacco Use Types [...] on filedocumented in this encounter Care Teams Photo Colorer Relationship Specialty Start Date End Date Yen [...]
--- OUTSIDE RECORDS SUMMARY | 2024-08-24 13:41 | XMS_ITS | Encounter Summary ---
Author Organization [facility] Address [address] [place] [address] Care Team Providers Care Mill Laborer Name Role Phone Yen Hemphill MD Primary Care Provider UnaWenceslao Voss MD Unavailable Unavailable Annika Rendon NP Unavailable [phone] Chepe Gonzalez MD Unavailable [phone] Antonella Jarrell MD [facility] Primary Care Provider UnavailYen Taylor MD Primary Care Provider Marilia silvestre Encounter Details Date Type Department Care Team Description 11/04/2017 Early Learning Teacher Report Medical Records [address] [place] [address] Wenceslao Rodriguez MD Social History Tobacco Use [...] on filedocumented in this encounter Care Teams Mill Laborer Relationship Specialty Start Date End Date Yen Hemphill MD PCP - General Internal Medicine 02/10/12 09/16/21 Antonella Jarrell MD PCP - General Internal Medicine 09/17/21 12/22/21 [facility], Pcp PCP - General Internal Medicine 12/23/21 12/25/21 eYn Hemphill MD PCP - General Internal Medicine 12/26/21 Wenceslao Rodriguez MD Specialist Cardiovascular Disease 05/31/20 2 Annika Rendon NP Specialist Cardiology 01/16/21 12/25/21 Chepe Gonzalez MD Specialist Cardiology 08/15/21 documented as of this encounter
--- OUTSIDE RECORDS SUMMARY | 2024-08-24 13:41 | XMS_ITS | Encounter Summary ---
Author Organization Amber [facility] Address [address] [place] [address] Care Team Providers Care Soil Tester Name Role Phone Yen Hemphill MD Primary Care Provider Unava Wenceslao Stoddard MD Unavailable Unavailable Annika Rendon NP Unavailable [phone] Chepe Gonzalez MD Unavailable [phone] Antonella Jarrell MD Primary Care Provider [facility] Primary Care Provider [facility] Yen Varghese MD Primary Care Provider Marilia silvestre Encounter Details Date Type Department Care Team Description 10/08/2016 Machine Tool Rebuilder Report Medical Records [address] [place] [address] Wenceslao Rodriguez MD Social History Tobacco Use [...] on filedocumented in this encounter Care Teams Soil Tester Relationship Specialty Start Date End Date Yen Hemphill MD PCP - General Internal Medicine 02/10/12 09/16/21 Antonella Jarrell MD PCP - General Internal Medicine 09/17/21 12/22/21 [facility], Pcp PCP - General Internal Medicine 12/23/21 12/25/21 Yen Hemphill MD PCP - General Internal Medicine 12/26/21 Wenceslao Rodriguez MD Specialist Cardiovascular Disease 05/31/20 2 Annika Rendon NP Specialist Cardiology 01/16/21 12/25/21 Chepe Gonzalez MD Specialist Cardiology 08/15/21 documented as of this encounter
--- OUTSIDE RECORDS SUMMARY | 2024-08-24 13:41 | XMS_ITS | Encounter Summary ---
Author Organization [facility] Address [address] [place] [address] Care Team Providers Care Cost Estimating Manager Name Role Phone Yen Hemphill MD Primary Care Provider Unava ilable Wenceslao Rodriguez MD Unavailable Unavailable Annika Rendon NP Unavailable [phone] Chepe Gonzalez MD Unavailable [phone] Antonella Jarrell MD Primary [facility] Yen Hemphill MD Primary Care Provider Unava ilable Reason for Visit * Reason Onset Date Comments TEST RESULTS 03/25/2016 Encounter Details Date Type Department Care Team Description 03/25/2016 Telephone Medicine/Pediatrics [address] [phone] Yen Hemphill MD TEST RESULTS Social History [...] performed: 03/22/16 Where was the test performed: [facility] Who ordered this test?: Bernice Lopez Is [...] on filedocumented in this encounter Care Teams Cost Estimating Manager Relationship Specialty Start Date End Date Yen Hemphill MD PCP - General Internal Medicine 02/10/12 09/16/21 Antonella Jarrell MD PCP - General Internal Medicine 09/17/21 12/22/21 [facility], Pcp PCP - General Internal Medicine 12/23/21 12/25/21 Yen Hemphill MD PCP - General Internal Medicine 12/26/21 Wenceslao Rodriguez MD Specialist Cardiovascular Disease 05/31/20 2 Annika Rendon NP Specialist Cardiology 01/16/21 12/25/21 Chepe Gonzalez MD Specialist Cardiology 08/15/21 documented as of this encounter
== END 2024-08-24 14:18 | disposition home or self-care (01) ==
LOC: HO.HGI 12:18
PROVIDERS: PCP Physician Assistant; Visit Provider Internal Medicine
DX: K62.5 Hemorrhage of anus and rectum (principal); R10.30 Lower abdominal pain, unspecified
CPT/HCPCS: 99204

== ENCOUNTER 2024-08-29 11:18 | Outpatient (REF) | payer OTHER, SELFPAY ==
[2024-08-29 15:01] LABS: Estimated Average Glucose 114 mg/dL; Hemoglobin A1C 139.0245 umol/L; Hemoglobin A1c % 5.6 % (<6.0); Total Hemoglobin (HGBA1C) 3731.2202 umol/L
[2024-08-29 15:10] LABS: Alanine Aminotransferase 18 U/L (0-31); Albumin Level 4.2 g/dL (3.5-5.0); Anion Gap 12 (12-20); Aspartate Amino Transferase 21 U/L (5-31); Bilirubin Total 0.3 mg/dL (0.0-1.0); Blood Urea Nitrogen 11 mg/dL (9-16); Calcium 9.8 mg/dL (8.4-10.2); Carbon Dioxide 28 mmol/L (22-29); Chloride 104 mmol/L (96-108); Cholesterol 231 mg/dL (<200); Estimated Glomerular Filt Rate > 60; Glucose Fasting 84 mg/dL (60-99); HDL Cholesterol 47 mg/dL (>40); LDL Cholesterol Calculated 163 mg/dL (<100); Sodium 140 mmol/L (135-145); Total Protein 7.1 g/dL (6.5-8.0); Triglycerides 108 mg/dL (<150)
[2024-08-29 16:07] LABS: Alkaline Phosphatase 48 U/L (39-117)
== END 2024-08-29 11:19 | disposition home or self-care (01) ==
LOC: HO.WFDLDS 11:18
PROVIDERS: Visit Provider Physician Assistant
DX: R73.01 Impaired fasting glucose (principal); E78.5 Hyperlipidemia, unspecified
CPT/HCPCS: 36415; 80053; 80061; 83036

== ENCOUNTER 2024-08-31 08:40 | Outpatient (AMB) | payer OTHER, SELFPAY ==
--- NOTE | 2024-08-31 08:43 | A.OFFPC_ITS ---
Vital Signs 08/31/24 08:49 Height 5 ft 7 in Weight 196 lb 8 oz BMI 30.8 BP 98/74 Blood Pressure Location Lt brachial Position Sitting Respiration 12 Pulse 70 Pulse Source Pulse Oximeter Pulse Oximetry (%) 97 Oxygen Delivery Method Room Air Intake Visit Reasons: labs Intake Note: Discuss lab results. Medical Office Professional Instructor Required: No Allergies No Known Allergies Allergy (Verified 08/31/24 08:47) Medication List - Last Reconciled 08/31/24 by Tara Tapia PA-C albuterol sulfate 90 mcg/actuation 2 puffs inhalation Q6H PRN alendronate 70 mg PO QWEEK amitriptyline 10 mg PO BEDTIME beclomethasone dipropionate 40 mcg/actuation (Qvar RediHaler) 1 inh inhalation BID 30 days fluticasone propionate 50 mcg/actuation 2 sprays intranasal BID tirzepatide (weight loss) (Zepbound) 5 mg (0.5 mL) subcut QWEEK Tobacco use date assessed: 08/31/24 Dental Screening Dental Screen Date: 08/26/23 Did you have a dental visit in the last 12 months?: Yes Did you have a dental problem in the last 6 months where you did not have access to dental care?: No Was dental information given to patient?: Patient has dentist HPI labs HPI Details Patient is a 59-year-old female with a significant past medical history of impaired fasting glucose, dyslipidemia, obesity, asthma and osteopenia presenting today for a follow up. PULM: Asthma is currently well-controlled. On QVAR and albuterol as needed. No recent exacerbations or hospitalizations related to asthma. CV: Blood pressure today in the office is 98/74. She is not on any antihypertensives. Last cholesterol was elevated. Tells me today that her diet was a bit worse over the last few months and she really does not want to take a statin but would like to trial aggressive diet changes. She is recently on Zepbound and tolerating well. She thinks that with an increased dosage of the she will have better control of her diet. She is aware that she also needs to exercise. We discussed that she needs to work on weight training and making sure she is getting enough protein and nutritionally dense foods. Psych: TMJ is improved with amitriptyline. Doing well. Requests refill today. Health Insurance Adjuster: Managing bone densities, last one showed osteopenia and she has 1 year left of Fosamax per Gynecology. She is interested in seeing endo depending on this next dexa scan. [facility] Medical History Osteoporosis TMJ (temporomandibular joint syndrome) Insomnia Generalized anxiety disorder Obesity (BMI 30.0-34.9) Colon polyp Hx of supraventricular tachycardia Asthma, mild intermittent, well-controlled Dyslipidemia IFG (impaired fasting glucose) Family History Father HTN (hypertension) Social History (Updated 08/31/24 @ 08:58 by Sindy Jamison CMA) Housing: House Alcohol intake: current Patient Tobacco Use Status: Former Tobacco user Cigarette Packs Per Day: 0.5 Years Smoked: 25 e-Cigarette/Vaping Use: Never Used Second Hand Smoke Exposure: No Substance Use Type: Marijuana service: No Current occupational status: employed 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 1. Little interest or pleasure in doing things: not at all 2. Feeling down, depressed, or hopeless: not at all 3. Trouble falling or staying asleep, or sleeping too much: not at all 4. Feeling tired or having little energy: not at all 5. Poor appetite or overeating: not at all 6. Feeling bad about yourself - or that you are a failure or have let yourself or your family down: not at all 7. Trouble concentrating on things, such as reading the newspaper or watching television: not at all 8. Moving or speaking so slowly that other people could have noticed. Or the opposite - being so fidgety or restless that you have been moving around a lot more than usual: not at all 9. Thoughts that you would be better off or of hurting yourself in some way: not at all Total score: 0 Depression Screening Interpretation: Negative Depression Screening Done: Yes 06974 - PHQ-9 Billing: Yes Source: Developed by Drs. Shad Allen, Mayra Morales, Elder Valverde and colleagues, with an educational elsa from [employer]. Thrive Questionnaire Date Thrive assessed: 08/31/24 I am a: Patient What is your living situation today?: I have a steady place to live Within the past 12 months, did the food you bought not last and you didn't have the money to get more?: Never true Within the past 12 months, did you worry whether your food would run out before you got money to buy more?: Never true Do you have trouble paying for medicines?: I choose not to answer this question Do you have trouble getting transportation to medical appointments?: No Do you have trouble paying your heating and electricity bill?: I choose not to answer this question Do you have trouble taking care of your child, family member or friend?: No Do you have trouble with day-to-day activities such as bathing, preparing meals, shopping, managing finances, etc.?: No Are you currently unemployed and looking for a job?: No Are you interested in more education?: I choose not to answer this question Please select the resources that you would like help with: None Currently or been in a relationship where the following occur: No concerns reported THRIVE Score: 0 AUDIT C Alcohol Use Questionnaire (AUDIT-C) 1. How often do you have a drink containing alcohol?: 2-3 times a week 2. How many drinks containing alcohol do you have on a typical day when you are drinking?: 3 or 4 3. How often do you have six or more drinks on one occasion?: Never Total Score: 4 CRISTIN-7 AMB Questionnaire CRISTIN-7 Date CRISTIN - 7 assessed: 03/30/24 Source: Developed by Drs. Shad Allen, Mayra Morales, Elder Valverde and colleagues, with an educational elsa from [employer]. Physical exam (Primary Care) Vital Signs: Last Vital Signs Pulse 70 08/31/24 08:49 Resp 12 08/31/24 08:49 BP 98/74 08/31/24 08:49 Pulse Ox 97 08/31/24 08:49 Oxygen Delivery Method Room Air 08/31/24 08:49 BMI result Body Mass Index 30.8 Tobacco/Smoking Status: Tobacco use Status Tobacco use date assessed 08/31/24 08/31/24 08:52 Patient Tobacco Use Status Former Tobacco user 08/31/24 08:58 e-Cigarette/Vaping Use Never Used 08/31/24 08:58 PHQ-9: PHQ-9 Score PHQ-9: Total score 0 08/31/24 08:59 Depression Screening Interpretation: Negative Thrive Assessment: Date of Thrive Assessment Date Thrive assessed 08/31/24 08/31/24 08:52 Currently or been in a relationship where the following occur: No concerns reported Const Orientation/consciousness: patient oriented x3 HENMT Ears: hearing grossly normal bilaterally Neck Thyroid: Thyroid normal Lymphatic: no lymphadenopathy noted Resp Auscultation: clear to auscultation bilaterally Cardio Rate: regular rate Rhythm: regular rhythm Heart sounds: S1 normal heart sound present and S2 normal heart sound present GI Inspection: Yes normal to inspection Palpation (GI): Soft to palpation and Other GI palpation findings present (nontender, no cva tenderness) Auscultation: normoactive bowel sounds Rectal Exam - Female: deferred Skin General skin exam: no rashes or lesions noted Neuro General: patient oriented x3, gait normal and no focal motor deficits Results Reviewed Results Reviewed: Laboratory Tests 06/02/24 08/29/24 09:03 11:19 WBC 5.8 RBC 4.63 Hgb 13.8 Hct 40.4 Plt Count 305 Creatinine 0.86 Estimated GFR > 60 Hemoglobin A1c % 5.6 Triglycerides 108 Cholesterol 231 H LDL Cholesterol, Calc 163 H HDL Cholesterol 47 Findings: No consolidation or effusion. The liver, gallbladder, spleen, adrenal glands and pancreas are unremarkable. Kidneys, ureters and bladder are within normal limits. The uterus and adnexa are normal. Normal appendix. No bowel obstruction or free air. Mild fecal retention within the colon. No acute osseous finding. Impression: No acute process by CT. Mild fecal retention throughout the colon Coding Level of Care Code Est Pt Level 4 (55017) Complex EM visit Add On G2211 Diagnoses Dyslipidemia E78.5 IFG (impaired fasting glucose) R73.01 Obesity (BMI 30.0-34.9) E66.9 Additional Codes PHQ-9 - 29238 - PHQ-9 Billing: Yes ([id number]) Assessment & Plan Assessment & Plan (1) Dyslipidemia: Code(s): E78.5 - Hyperlipidemia, unspecified Category: Medical Plan: She is going to work on diet changes (2) IFG (impaired fasting glucose): Code(s): R73.01 - Impaired fasting glucose Category: Medical Plan: A1c stable. We will monitor (3) Obesity (BMI 30.0-34.9): Code(s): E66.9 - Obesity, unspecified Category: Medical Plan: She has lost a couple lb with the Zepbound. We will increase dosage as she is tolerating well. Orders: Orders Comprehensive [place]. Panel Fast Today E78.5 - Hyperlipidemia, unspecified, R73.01 - Impaired fasting glucose Hemoglobin A1c Today E78.5 - Hyperlipidemia, unspecified, R73.01 - Impaired fasting glucose Lipid Panel Today E78.5 - Hyperlipidemia, unspecified, R73.01 - Impaired fasting glucose Medications: New tirzepatide (weight loss) (Zepbound) 5 mg (0.5 mL) subcut QWEEK 2 mL 4RF fluticasone propionate 50 mcg/actuation administer into each nostril 2 sprays intranasal BID 16 grams 5RF Refilled amitriptyline 10 mg PO BEDTIME 90 tabs 3RF Discontinued tirzepatide (weight loss) (Zepbound) for 4 weeks Discontinued Reason: Doctor's Order 2.5 mg (0.5 mL) subcut QWEEK 2 mL 1RF
[2024-08-31 08:49] VITALS: BP 98/74; PULSE 70; RESP 12; O2SAT 97; BMI 30.8
--- OUTSIDE RECORDS SUMMARY | 2024-08-31 09:00 | XMS_ITS | Encounter Summary ---
Author Organization [employer] [facility] Address [address] [place] [address] Care Team Providers Care Field Education Director Name Role Phone Yen Hemphill MD Primary Care Provider Wenceslao Schaefer MD Unavailable Unavailable Annika eRndon NP Unavailable [phone] Chepe Gonzalez MD Unavailable [phone] Antonella Jarrell MD Primary Care Provider Sue serrato [facility], Pcp Primary Care Provider UnavailYen Taylor MD Primary Care Provider Marilia silvestre Encounter Details Date Type Department Care Team Description 07/13/2012 Transfer Records Medical Records [address] [place] [id number] Abstract, Provider Social History Tobacco Use Types [...] on filedocumented in this encounter Care Teams Field Education Director Relationship Specialty Start Date End Date Yen Hemphill MD PCP - General Internal Medicine 02/10/12 09/16/21 Antonella Jarrell MD PCP - General Internal Medicine 09/17/21 12/22/21 [facility], Pcp PCP - General Internal Medicine 12/23/21 12/25/21 Yen Hemphill MD PCP - General Internal Medicine 12/26/21 Wenceslao Rodriguez MD Specialist Cardiovascular Disease 05/31/20 2 Annika Rendon NP Specialist Cardiology 01/16/21 12/25/21 Chepe Gonzalez MD Specialist Cardiology 08/15/21 documented as of this encounter
--- OUTSIDE RECORDS SUMMARY | 2024-08-31 09:00 | XMS_ITS | Encounter Summary ---
Author Organization [employer] [facility] Address [address] [place] [address] Care Team Providers Care Mannequin Decorator Name Role Phone Wenceslao Rodriguez MD Unavailable Unavailable Annika Rendon NP Unavailable [phone] Chepe Gonzalez MD Unavailable [phone] Antonella Jarrell MD [facility] Primary Care Provider UnavailYen Taylor MD Primary Care Provider Unava ilable Reason for Visit * Reason Comments E-prescribe Rx Request Encounter Details Date Type Department Care Team Description 12/22/2021 Refill Medicine/Pediatrics - [address] [address] Mary Benitez, [address] [place] [address] E-prescribe Rx Request Social History Tobacco Use [...] an upcoming appointment? No-unable to reach left [facility] to call for appointment due to refill [...] N/A Patients current insurance carrier is: Payor: [facility] / Plan: O $35 [place] [id number] / Product Type: HMO [id number] documented in this encounter Plan of Treatment Not on file documented as of this encounter Visit Diagnoses Not on filedocumented in this encounter Care Teams Mannequin Decorator Relationship Specialty Start Date End Date Antonella [...]
--- OUTSIDE RECORDS SUMMARY | 2024-08-31 09:00 | XMS_ITS | Encounter Summary ---
Author Organization [facility] [employer] [facility] Address [address] [place] [address] Care Team Providers Care Roper Operator Name Role Phone Yen Hemphill MD Primary Care Provider Unava Wenceslao Stoddard MD Unavailable Unavailable Annika Rendon NP Unavailable [phone] Chepe Gonzalez MD Unavailable Antonella Jarrell MD Primary Care Provider Sue Shay [facility] Primary Care Provider UnavailYen Taylor MD Primary Care Provider Marilia silvestre Encounter Details Date Type Department Care Team Description 05/15/2015 [facility] Medical Records [address] [place] [address] Wenceslao Rodriguez MD Social History Tobacco Use [...] on filedocumented in this encounter Care Teams Roper Operator Relationship Specialty Start Date End Date Yen Hemphill MD PCP - General Internal Medicine 02/10/12 09/16/21 Antonella Jarrell MD PCP - General Internal Medicine 09/17/21 12/22/21 [facility], Pcp PCP - General Internal Medicine 12/23/21 12/25/21 Yen Hemphill MD PCP - General Internal Medicine 12/26/21 Wenceslao Rodriguez MD Specialist Cardiovascular Disease 05/31/20 2 Annika Rendon NP Specialist Cardiology 01/16/21 12/25/21 Chepe Gonzalez MD Specialist Cardiology 08/15/21 documented as of this encounter
--- OUTSIDE RECORDS SUMMARY | 2024-08-31 09:00 | XMS_ITS | Encounter Summary ---
Author Organization [employer] [facility] Address [address] [place] [address] Care Team Providers Care Commercial Real Estate Appraiser Name Role Phone Yen Hemphill MD Primary Care Provider Unava Wencesalo Stoddard MD Unavailable Unavailable Annika Rendon NP Unavailable [phone] Chepe Gonzalez MD Unavailable [phone] Antonella Jarrell MD Primary Care Provider [facility] Pcp Primary [facility] Yen Hemphill MD Primary Care Provider Marilia silvestre Encounter Details Date Type Department Care Team Description 06/28/2015 [facility] Medical Records [address] [place] [id number] Wenceslao Rodriguez MD Social History Tobacco Use [...] Date/Time Associated Diagnosis Comments OUTSIDE EKG Routine 06/28/2015 documented in this encounter Results * OUTSIDE EKG (06/28/2015) Provider Default CARDIOLOGY documented in this encounter Visit Diagnoses Not on filedocumented in this encounter Care Teams Commercial Real Estate Appraiser Relationship Specialty Start Date End Date Yen Hemphill MD PCP - General Internal Medicine 02/10/12 09/16/21 Antonella Jarrell MD PCP - General Internal Medicine 09/17/21 12/22/21 [facility], Pcp PCP - General Internal Medicine 12/23/21 12/25/21 Yen Hemphill MD PCP - General Internal Medicine 12/26/21 Wenceslao Rodriguez MD Specialist Cardiovascular Disease 05/31/20 2 Annika Rendon NP Specialist Cardiology 01/16/21 12/25/21 Chepe Gonzalez MD Specialist Cardiology 08/15/21 documented as of this encounter
--- OUTSIDE RECORDS SUMMARY | 2024-08-31 09:00 | XMS_ITS | Encounter Summary ---
Author Organization [employer] [facility] Address [address] [place] [address] Care Team Providers Care Patient Registration Specialist Name Role Phone Yen Hemphill MD Primary Care Provider UnaWenceslao Voss MD Unavailable Unavailable Annika Rendon NP Unavailable [phone] Chepe Gonzalez MD Unavailable [phone] Antonella Jarrell MD [facility] Primary Care Provider UnavailYen Taylor MD Primary Care Provider Unameeta silvestre Encounter Details Date Type Department Care Team Description 04/12/2020 [facility] Medical Records [address] [place] [address] Social History Tobacco Use Types Packs/Day Years [...] on filedocumented in this encounter Care Teams Patient Registration Specialist Relationship Specialty Start Date End Date Yen Hemphill MD PCP - General Internal Medicine 02/10/12 09/16/21 Antonella Jarrell MD PCP - General Internal Medicine 09/17/21 12/22/21 [facility], Pcp PCP - General Internal Medicine 12/23/21 12/25/21 Yen Hemphill MD PCP - General Internal Medicine 12/26/21 Wenceslao Rodriguez MD Specialist Cardiovascular Disease 05/31/20 2 Annika Rendon NP Specialist Cardiology 01/16/21 12/25/21 Chepe Gonzalez MD Specialist Cardiology 08/15/21 documented as of this encounter
--- OUTSIDE RECORDS SUMMARY | 2024-08-31 09:00 | XMS_ITS | Encounter Summary ---
Author Organization Amber [employer] [facility] Address [address] [place] [address] Care Team Providers Care Mental Health Tech Name Role Phone Yen Hemphill MD Primary Care Provider Wenceslao Schaefer MD Unavailable Unavailable Annika Rendon NP Unavailable [phone] Chepe Gonzalez MD Unavailable [phone] Antonella Jarrell MD Primary Care Provider Sue Shay [facility] Primary Care Provider UnavailYen Taylor MD Primary Care Provider Marilia silvestre Encounter Details Date Type Department Care Team Description 10/27/2018 [facility] [address] [place] [id number] Md Yadira Social History Tobacco Use Types Packs/Day Years [...] on filedocumented in this encounter Care Teams Mental Health Tech Relationship Specialty Start Date End Date Yen Hemphill MD PCP - General Internal Medicine 02/10/12 09/16/21 Antonella Jarrell MD PCP - General Internal Medicine 09/17/21 12/22/21 [facility], Pcp PCP - General Internal Medicine 12/23/21 12/25/21 Yen Hemphill MD PCP - General Internal Medicine 12/26/21 Wenceslao Rodriguez MD Specialist Cardiovascular Disease 05/31/20 2 Annika Rendon NP Specialist Cardiology 01/16/21 12/25/21 Chepe Gonzalez MD Specialist Cardiology 08/15/21 documented as of this encounter
--- OUTSIDE RECORDS SUMMARY | 2024-08-31 09:00 | XMS_ITS | Encounter Summary ---
Author Organization [facility] Address [address] [place] [address] Care Team Providers Care Administrative Court Justice Name Role Phone Yen Vieira MD Primary Care Provider Unava ilable Wenceslao Rodriguez MD Unavailable Unavailable Annika Rendon NP Unavailable [phone] Chepe Gonzalez MD Unavailable [phone] Antonella Jarrell MD Primary [facility] Yen Vieira MD Primary Care Provider Unava ilable Reason for Visit * Reason Onset Date Comments Machine Worker Feedback 10/27/2017 PVC Encounter Details Date Type Department Care Team Description 10/27/2017 Telephone Medicine/Pediatrics - [address] [address] Yen Vieira MD Machine Worker Feedback (PVC) Social History Tobacco Use Types Packs/Day Years [...] encounter Miscellaneous Notes * Telephone Encounter - Shakira Basilio - 10/27/2017 3:35 PM EDT Referral requested via fax for date of service 11/04/[address] Wenceslao Rodriguez.. [facility] Trace #: [id number] Subscriber: KELLYVolodymyr YUHERNANDEZ Submitter : YEN VIEIRA Submitter Type: Provider : 1965 Referral (#[id number]) Specialty Care Review Type: Initial Certification Status : Certified in total Service Type : Medical Care Place Of Service : Office Visits : 6 Service Date : 10/27/2017-10/27/2018 Service Providers Provider Name ID Provider Type WENCESLAO RODRIGUEZ NPI : [id number] Service Provider documented in this encounter Plan of Treatment Not on file documented as of this encounter Visit Diagnoses Not on filedocumented in this encounter Care Teams Administrative Court Justice Relationship Specialty Start Date End Date Yen Vieira MD PCP - General Internal Medicine 02/10/12 09/16/21 Antonella Jarrell MD PCP - General Internal Medicine 09/17/21 12/22/21 [facility], Pcp PCP - General Internal Medicine 12/23/21 12/25/21 Yen Vieira MD PCP - General Internal Medicine 12/26/21 Wenceslao Rodriguez MD Specialist Cardiovascular Disease 05/31/20 2 Annika Rendon NP Specialist Cardiology 01/16/21 12/25/21 Chepe Gonzalez MD Specialist Cardiology 08/15/21 documented as of this encounter
--- OUTSIDE RECORDS SUMMARY | 2024-08-31 09:00 | XMS_ITS | Encounter Summary ---
Author Organization [employer] [facility] Address [address] [place] [address] Care Team Providers Care Process Stripper Name Role Phone Yen Hemphill MD Primary Care Provider UnaWenceslao Voss MD Unavailable Unavailable Annika Rendon NP Unavailable [phone] Chepe Gonzalez MD Unavailable [phone] Antonella Jarrell MD [facility] Primary Care Provider UnavailYen Taylor MD Primary Care Provider Marilia silvestre Encounter Details Date Type Department Care Team Description 04/15/2016 Websphere Administrator Report Medical Records [address] [place] [address] Dmitry Clinton PA-C Social History Tobacco Use [...] on filedocumented in this encounter Care Teams Process Stripper Relationship Specialty Start Date End Date Yen [...]
--- OUTSIDE RECORDS SUMMARY | 2024-08-31 09:00 | XMS_ITS | Encounter Summary ---
Author Organization [employer] [facility] Address [address] [place] [address] Care Team Providers Care X Ray Developer Name Role Phone Yen Hemphill MD Primary Care Provider UnaWenceslao Voss MD Unavailable Unavailable Annika Rendon NP Unavailable [phone] Chepe Gonzalez MD Unavailable [phone] Antonella Jarrell MD [facility] Primary Care Provider UnavailYen Taylor MD Primary Care Provider Marilia silvestre Encounter Details Date Type Department Care Team Description 12/15/2018 Fixed Income Portfolio Manager Report Medical Records [address] [place] [address] Wenceslao Rodriguez MD Social History Tobacco Use [...] on filedocumented in this encounter Care Teams X Ray Developer Relationship Specialty Start Date End Date Yen [...]
--- OUTSIDE RECORDS SUMMARY | 2024-08-31 09:00 | XMS_ITS | Encounter Summary ---
Author Organization [facility] Address [address] [place] [address] Care Team Providers Care Wedding Coordinator Name Role Phone Yen Hemphill MD Primary Care Provider UnaWenceslao Voss MD Unavailable Unavailable Annika Rendon INFERTILITY MEDICAL ASSISTANT Unavailable Chepe Gonzalez MD Unavailable [phone] Antonella Jarrell MD Primary [facility] Primary Care Provider UnavailYen Taylor MD Primary Care Provider Unameeta silvestre Encounter Details Date Type Department Care Team Description 06/15/2019 [facility] Medical Records [address] [place] [address] Annika Rendon, INFERTILITY MEDICAL ASSISTANT [address] [place] [address] Dr [address] [place] [address] Social History Tobacco Use Types Packs/Day Years [...] on filedocumented in this encounter Care Teams Wedding Coordinator Relationship Specialty Start Date End Date Yen Hemphill MD PCP - General Internal Medicine 02/10/12 09/16/21 Antonella Jarrell MD PCP - General Internal Medicine 09/17/21 12/22/21 [facility] PCP - General Internal Medicine 12/23/21 12/25/21 Yen Hemphill MD PCP - General Internal Medicine 12/26/21 Wenceslao Rodriguez MD Specialist Cardiovascular Disease 05/31/20 2 Annika Rendon NP Specialist Cardiology 01/16/21 12/25/21 Chepe Gonzalez MD Specialist Cardiology 08/15/21 documented as of this encounter
--- OUTSIDE RECORDS SUMMARY | 2024-08-31 09:00 | XMS_ITS | Encounter Summary ---
Author Organization [facility] Address [address] [place] [address] Care Team Providers Care Heat Treating Operator Name Role Phone Yen Hemphill MD Primary Care Provider Unava Wenceslao Stoddard MD Unavailable Unavailable Annika Rendon NP Unavailable [phone] Chepe Gonzalez MD Unavailable [phone] Antonella Jarrell MD Primary Care Provider [facility] Yen Varghese MD Primary Care Provider Marilia silvestre Encounter Details Date Type Department Care Team Description 10/08/2016 Boss Dyer Report Medical Records [address] [place] [id number] Wenceslao Rodriguez MD Social History Tobacco Use [...] on filedocumented in this encounter Care Teams Heat Treating Operator Relationship Specialty Start Date End Date Yen Hemphill MD PCP - General Internal Medicine 02/10/12 09/16/21 Antonella Jarrell MD PCP - General Internal Medicine 09/17/21 12/22/21 [facility], Pcp PCP - General Internal Medicine 12/23/21 12/25/21 Yen Hemphill MD PCP - General Internal Medicine 12/26/21 Wenceslao Rodriguez MD Specialist Cardiovascular Disease 05/31/20 2 Annika Rendon NP Specialist Cardiology 01/16/21 12/25/21 Chepe Gonzalez MD Specialist Cardiology 08/15/21 documented as of this encounter
--- OUTSIDE RECORDS SUMMARY | 2024-08-31 09:00 | XMS_ITS | Encounter Summary ---
[facility] Address [address] [place] [address] Care Team Providers Care Milk And Cream Grader Name Role Phone Wenceslao Rodriguez MD Unavailable Unavailable Annika Rendon NP Unavailable [phone] Chepe Gonzalez MD Unavailable [phone] Antonella Jarrell MD Primary Care Provider Unavailgloria Shay Colette Primary Care Provider UnavaileYn Taylor MD Primary Care Provider Unava ilable Reason for Visit * Reason Onset Date Comments Hospital Procedure 09/24/2021 SVT Ablation 8.5.22 Encounter Details Date Type Department Care Team Description 09/24/2021 Telephone Cardio PVC POC [address] [facility] [address] [place] [address] Chepe Gonzalez MD [address] [place] [address] [id number] Hospital Procedure (SVT Ablation 8.5.22) Social History [...] 8:43 AM EDT Per fax back from [facility] [place] [id number] * Telephone Encounter - Anna Salazar C.M.A. - 09/24/2021 12:09 PM EDT SVT Ablation [id number] Dx SVT I49.1 w/ JPM at [facility] on 11.29.21 * Telephone Encounter - Anna Salazar C.M.A. - 09/24/2021 12:02 PM EDT Spoke with patient about procedure. Scheduled on 11.29.21 w/ JPM at [facility] at 11am Mailing packet to patient today [...] the procedure Patient is to report to [facility] to the 3rd floor Patient agreed to all inst and date, time and location above via phone while booking procedure. Booking sheet and confirmation received. documented in this encounter Plan of Treatment Not on file documented as of this encounter Visit Diagnoses Diagnosis Paroxysmal supraventricular tachycardia (HCC)- Primary Paroxysmal supraventricular tachycardia documented in this encounter Care Teams Milk And Cream Grader Relationship Specialty Start Date End Date Antonella Jarrell MD PCP - General Internal Medicine 09/17/21 12/22/21 [facility], Pcp PCP - General Internal Medicine 12/23/21 12/25/21 Yen Hemphill MD PCP - General Internal Medicine 12/26/21 Wenceslao Rodriguez MD Specialist Cardiovascular Disease 05/31/20 2 Annika Rendon NP Specialist Cardiology 01/16/21 12/25/21 Chepe Gonzalez MD Specialist Cardiology 08/15/21 documented as of this encounter
--- OUTSIDE RECORDS SUMMARY | 2024-08-31 09:00 | XMS_ITS | Clinical Summary ---
Author Organization [facility] Address [address] [place] [address] Care Team Providers Care Department Helper Name Role Phone Chepe Gonzalez MD Unavailable [phone] Yen Hemphill MD Primary Care Provider Unava ilable Allergies No known active allergies Medications Medication Sig Dispensed Refills Start Date End Date Status [place]-3 Fatty Acids (FISH OIL CONCENTRATE OR) Take [...] (atrioventricular) harsha ablation 12/23/2021 Overview: Done at [facility] on 11/29/21 with JPM Dyslipidemia [...] Immunizations Name Administration Dates Next Due COVID-19 ([employer]) Pt Reported 10/09/2020, 021 Hepatitis B > [...] HEPATITIS C SCREENING Completed 01/13/2020 Care Teams Department Helper Relationship Specialty Start Date End Date Yen Hemphill MD PCP - General Internal Medicine 12/26/21 Chepe Gonzalez MD Specialist Cardiology 08/15/21
--- OUTSIDE RECORDS SUMMARY | 2024-08-31 09:00 | XMS_ITS | Encounter Summary ---
Author Organization [facility] Address [address] [place] [address] Care Team Providers Care Cable Assembler Name Role Phone Yen Hemphill MD Primary Care Provider Unava Wenceslao Stoddard MD Unavailable Unavailable Annika Rendon NP Unavailable [phone] Chepe Gonzalez MD Unavailable [phone] Antonella Jarrell MD Primary Care Provider Sue serrato [facility] Primary Care Provider UnavailYen Taylor MD Primary Care Provider Marilia silvestre Encounter Details Date Type Department Care Team Description 03/26/2016 Coater Associate Report Medical Records [address] [place] [id number] Wenceslao Rodriguez MD Social History Tobacco Use [...] on filedocumented in this encounter Care Teams Cable Assembler Relationship Specialty Start Date End Date Yen [...]
== END 2024-08-31 11:27 | disposition home or self-care (01) ==
LOC: HO.HMCFM 08:41
PROVIDERS: PCP Physician Assistant; Visit Provider Physician Assistant
DX: E78.5 Hyperlipidemia, unspecified (principal); R73.01 Impaired fasting glucose; E66.9 Obesity, unspecified; Z68.30 Body mass index [BMI] 30.0-30.9, adult

== ENCOUNTER → 2024-08-31 08:40 | Outpatient (BNVA) | payer OTHER, SELFPAY | PROVIDERS: PCP Physician Assistant; Visit Provider Physician Assistant | DX: E78.5 Hyperlipidemia, unspecified (principal); R73.01 Impaired fasting glucose; E66.9 Obesity, unspecified; Z68.30 Body mass index [BMI] 30.0-30.9, adult; J45.909 Unspecified asthma, uncomplicated | CPT/HCPCS: 96127 ==

== ENCOUNTER 2024-12-30 08:01 | Outpatient (REF) | payer OTHER, SELFPAY ==
--- OUTSIDE RECORDS SUMMARY | 2023-06-23 09:36 | XMS_ITS | Encounter Summary ---
Author Organization [facility] Address [address] [place] [address] [place] [address] Phone Care Team Providers Care Peripheral Edp Equipment Operator Name Role Phone Antonella Jarrell MD Primary Care Provider [phone] Yen Hemphill MD Unavailable [phone] Encounter Details Date Type Department Care Team (Late st Contact Info) Description 06/23/2023 8:36 AM EST Hospital Encounter [facility] [address] [place] [address] Aelja Archuleta PA-C, MS 30 [place] [address] [email or web address] Social History Tobacco Use Types Packs/Day Years [...] Name Priority Date/Time Associated Diagnosis Comments XR KNEE 4 OR MORE VIEWS (RIGHT) Urgent/patient waiting 06/23/2023 8:43 AM EST Fall, initial encounter documented in this encounter Results * XR KNEE 4 OR MORE VIEWS (RIGHT) (06/23/2023 8:43 AM EST) Anatomical Region Laterality Modality Knee Right Computed Radiogr aphy 06/23/2023 9:17 AM EST Impressions 06/23/2023 9:18 AM EST Prepatellar soft tissue swelling. No fracture. Normal alignment. Normal joint spaces. No knee joint effusion. Narrative 06/23/2023 9:18 AM EST XR KNEE 4 OR MORE VIEWS (RIGHT) Referring clinician's provided indication for this examination in [facility]: S/P Fall; Worker's Comp, fall onto right side, now with pain in right 5th metacarpal and anterior right knee COMPARISON: None. Procedure Note Thee Domínguez MD - 06/23/2023 XR KNEE 4 OR MORE VIEWS (RIGHT) Referring clinician's provided indication for this examination in [facility]:S/P Fall; Worker's Comp, fall onto right side, now with pain in right 5thmetacarpal and anterior right knee COMPARISON: None. IMPRESSION: Prepatellar soft tissue swelling. No fracture. Normal alignment. Normaljoint spaces. No knee joint effusion. Aleja Archuleta PA-C, MS IMG XR LOWER EXTRE MITY Final Result documented in this encounter Visit Diagnoses Not on filedocumented in this encounter Care Teams Peripheral Edp Equipment Operator Relationship Specialty Start Date End Date Antonella Jarrell MD PCP - General 06/20/22 Yen Hemphill MD [address] [place] [address] 06/20/22 documented as of this encounter Additional Source Comments The information contained in this document represents components of the legal health record. It is not the complete legal health record.[facility]
--- OUTSIDE RECORDS SUMMARY | 2023-06-23 09:36 | XMS_ITS | Encounter Summary ---
Author Organization [facility] Address [address] [place] [address] [place] [address] Phone Care Team Providers Care Materials Recycler Name Role Phone Antonella Jarrell MD Primary Care Provider [phone] Yen Hemphill MD Unavailable [phone] Encounter Details Date Type Department Care Team (Late st Contact Info) Description 06/23/2023 8:36 AM EST Hospital Encounter [facility] [address] [place] [address] Aleja Arcuhleta PA-C, MS [address] [place] [address] Social History Tobacco Use Types Packs/Day Years [...] clinician's provided indication for this examination in [facility]: S/P Fall; Worker's Comp, fall onto [...] clinician's provided indication for this examination in [facility]:S/P Fall; Worker's Comp, fall onto right [...] on filedocumented in this encounter Care Teams Materials Recycler Relationship Specialty Start Date End Date Antonella Jarrell MD PCP - General 06/20/22 Yen Hemphill MD [address] [place] [address] 06/20/22 documented as of this encounter Additional Source Comments The information contained in this document represents components of the legal health record. It is not the complete legal health record.[facility]
--- OUTSIDE RECORDS SUMMARY | 2024-12-30 08:05 | XMS_ITS | Clinical Summary ---
Author Organization [facility] Address [address] [place] [address] Phone Care Team Providers Care Grade Setter Name Role Phone Antonella Jarrell MD Primary Care Provider Yen Hemphill MD Unavailable [phone] Allergies No known active allergies Medications fluticasone propionate (FLONASE) 50 mcg/actuation nasal spray USE 1 SPRAY IN EACH NOSTRIL TWICE A DAY 04/24/2023 Active cyclobenzaprine (FLEXERIL) 5 MG tablet Take 5 mg by mouth nightly at bedtime. 06/18/2023 Active QVAR REDIHALER 40 mcg/actuation inhaler Inhale 1 puff into the lungs 2 (two) times a day. 06/17/2023 Active amitriptyline (ELAVIL) 10 MG tablet 06/22/2023 Active alendronate (FOSAMAX) 70 MG tablet TAKE 1 TABLET BY MOUTH ONCE WEEKLY X90 DAYS 06/17/2023 Active albuterol 90 mcg/actuation inhaler Inhale 2 puffs into the lungs every 4 (four) hours. 06/18/2023 Active Active Problems No known active problems Immunizations Immunization Administration Dates Next Due Hepatitis B Adult 06/03/2007,01/02/2006,12/05/19 06 INFLUENZA, SPLIT VIRUS, TRIV ALENT W/ PRESERVATIVE IM 01/05/2013,05/07/2012,02/12/2009 Pneumococcal polysaccharide PPSV23 08/05/2013 Td (adult),2 Lf Tetanus Toxo id, PF, Adsorbed 02/08/2021,06/29/1998 Tdap 10/30/2010 Social History Tobacco Use Types Packs/Day Years Used Date Smoking Tobacco: Never Smokeless Tobacco: Never Tobacco Cessation:Counseling Given: Not Answered Education Answer Date Recorded Are you interested [...] on file Sexual Orientation Not on file Last Filed Vital Signs Vital Sign Reading Time Taken Comments Blood Pressure 129/81 06/23/2023 8:14 AM EST Pulse 90 06/23/2023 8:14 AM EST Temperature 36.8 C (98.3 F) 06/23/2023 8:14 AM EST Respiratory Rate 18 06/23/2023 8:14 AM EST Oxygen Saturation 96% 06/23/2023 8:14 AM EST Inhaled Oxygen Concentration - - Weight - - Height - - Body Mass Index - - Plan of Treatment Health Maintenance Due Date Last Done Comments LIPID PANEL 1966 DEPRESSION SCREENING 1978 HEPATITIS C SCREENING 1984 HIV ONE-TIME SCREENING (18-6 5 YEARS) 1984 PAP SMEAR 08/28/1987 MAMMOGRAM 2006 COLOGUARD 08/28/2011 COLONOSCOPY 08/28/2011 COLORECTAL CANCER SCREENING 08/28/2011 FIT TEST 08/28/2011 FOBT 08/28/2011 SIGMOIDOSCOPY 08/28/2011 VIRTUAL COLONOSCOPY 08/28/2011 PNEUMOCOCCAL VACCINES (50+ years) (2 of 2 - PCV) 2016 08/05/2013 ZOSTER VACCINES (1 of 2) 2016 COVID-19 VACCINE (4 - 2023-2 5 season) 2023 05/01/2021, 10/09/2020, 09/13/2020 Adult Td,Tdap Booster 02/08/2031 02/08/2021 , 10/30/2010, 06/29/1998 SMOKING STATUS SCREENING (On ce After 26 Yrs) Completed 07/14/2023 HEPATITIS A VACCINES Aged Out No long er eligible based on patient's age to complete this topic HIB VACCINES Aged Out No longer eligi ble based on patient's age to complete this topic MENINGOCOCCAL VACCINES (ACWY) Aged Out No longer eligible based on patient's age to complete this topic MENINGOCOCCAL VACCINES (B) Aged Out N o longer eligible based on patient's age to complete this topic Medical Devices Not on file [facility] [employer] Care Teams Grade Setter Relationship Specialty Start Date End Date Antonella Jarrell MD PCP - General 06/20/22 Yen Hemphill MD [address] [place] [address] 06/20/22 Additional Source Comments The information contained in this document represents components of the legal health record. It is not the complete legal health record.[facility]
[2024-12-30 11:36] LABS: Hemoglobin A1C 136.8863 umol/L; Total Hemoglobin (HGBA1C) 3688.3374 umol/L
[2024-12-30 11:49] LABS: Alanine Aminotransferase 23 U/L (0-31); Albumin Level 4.2 g/dL (3.5-5.0); Alkaline Phosphatase 44 U/L (39-117); Anion Gap 10 (12-20); Aspartate Amino Transferase 20 U/L (5-31); Blood Urea Nitrogen 10 mg/dL (9-16); Calcium 8.8 mg/dL (8.4-10.2); Carbon Dioxide 27 mmol/L (22-29); Chloride 107 mmol/L (96-108); Cholesterol 221 mg/dL (<200); Estimated Glomerular Filt Rate > 60; HDL Cholesterol 42 mg/dL (>40); Potassium 3.8 mmol/L (3.3-5.1); Sodium 140 mmol/L (135-145); Total Protein 6.9 g/dL (6.5-8.0); Triglycerides 119 mg/dL (<150)
== END 2024-12-30 08:02 | disposition home or self-care (01) ==
LOC: HO.WFDLDS 08:01
PROVIDERS: Visit Provider Physician Assistant
DX: R73.01 Impaired fasting glucose (principal); E78.5 Hyperlipidemia, unspecified
CPT/HCPCS: 36415; 80053; 80061; 83036

== ENCOUNTER 2025-01-18 12:51 | Outpatient (AMB) | payer OTHER, SELFPAY ==
--- OUTSIDE RECORDS SUMMARY | 2023-06-23 09:36 | XMS_ITS | Encounter Summary ---
Author Organization [facility] Address [address] [place] [address] [place] [address] Phone Care Team Providers Care Die Sizer Name Role Phone Antonella Jarrell MD Primary Care Provider [phone] Yen Hemphill MD Unavailable [phone] Encounter Details Date Type Department Care Team (Late st Contact Info) Description 06/23/2023 8:36 AM EST Hospital Encounter [facility] [address] [place] [address] Aleja Archuleta PA-C, MS 30 [place] [address] Social History Tobacco Use Types Packs/Day Years [...] clinician's provided indication for this examination in [facility]: S/P Fall; Worker's Comp, fall onto right [...] clinician's provided indication for this examination in [facility]:S/P Fall; Worker's Comp, fall onto right side, [...] on filedocumented in this encounter Care Teams Die Sizer Relationship Specialty Start Date End Date Antonella Jarrell MD PCP - General 06/20/22 Yen Hemphill MD [address] [place] [address] 06/20/22 documented as of this encounter Additional Source Comments The information contained in this document represents components of the legal health record. It is not the complete legal health record.[facility]
--- OUTSIDE RECORDS SUMMARY | 2023-06-23 09:36 | XMS_ITS | Encounter Summary ---
Author Organization [facility] Address [address] [place] [address] [place] [address] Phone Care Team Providers Care Director Of Sleep Name Role Phone Antonella Jarrell MD Primary Care Provider [phone] Yen Hemphill MD Unavailable [phone] Encounter Details Date Type Department Care Team (Late st Contact Info) Description 06/23/2023 8:36 AM EST Hospital Encounter [facility] [address] [place] [phone] Aleja Archuleta PA-C, MS [address] [place] [address] [email or web address] Social History Tobacco Use Types Packs/Day Years [...] clinician's provided indication for this examination in [facility]: S/P Fall; Worker's Comp, fall onto right side, now with pain in right 5th metacarpal and anterior right knee COMPARISON: None. Procedure Note Thee Domínguez MD - 06/23/2023 XR KNEE 4 OR MORE VIEWS (RIGHT) Referring clinician's provided indication for this examination in [facility]:S/P Fall; Worker's Comp, fall onto right side, now with pain in right 5thmetacarpal and anterior right knee COMPARISON: None. IMPRESSION: Prepatellar soft tissue swelling. No fracture. Normal alignment. Normaljoint spaces. No knee joint effusion. Aleja Archuleta PA-C, MS IMG XR LOWER EXTRE MITY Final Result documented in this encounter Visit Diagnoses Not on filedocumented in this encounter Care Teams Director Of Sleep Relationship Specialty Start Date End Date Antonella Jarrell MD PCP - General 06/20/22 Yen Hemphill MD [address] [place] [address] 06/20/22 documented as of this encounter Additional Source Comments The information contained in this document represents components of the legal health record. It is not the complete legal health record.[facility]
--- NOTE | 2025-01-18 12:53 | A.OFFPC_ITS ---
Vital Signs 01/18/25 12:57 Height 5 ft 7 in Weight 176 lb 2 oz BMI 27.6 BP 100/72 Blood Pressure Location Rt brachial Position Sitting Respiration 12 Pulse 84 Pulse Source Pulse Oximeter Temp 98.4 F Temp Source Oral Pulse Oximetry (%) 98 Oxygen Delivery Method Room Air Intake Visit Reasons: 4 Months meds Intake Note: Follow up lab results Business Education Instructor Required: No Allergies No Known Allergies Allergy (Verified 01/18/25 12:56) Medication List - Last Reconciled 01/18/25 by Tara Tapia PA-C albuterol sulfate 90 mcg/actuation 2 puffs inhalation Q6H PRN alendronate 70 mg PO QWEEK amitriptyline 10 mg PO BEDTIME beclomethasone dipropionate 40 mcg/actuation (Qvar RediHaler) 1 inh inhalation BID 30 days fluticasone propionate 50 mcg/actuation 2 sprays intranasal BID tirzepatide (weight loss) (Zepbound) 15 mg (0.5 mL) subcut QWEEK Tobacco use date assessed: 01/18/25 Dental Screening Dental Screen Date: 01/18/25 HPI 4 Months meds HPI Details Patient is a 59-year-old female with a significant past medical history of impaired fasting glucose, dyslipidemia, obesity, asthma and osteopenia presenting today for a follow up. PULM: Asthma is currently well-controlled. On QVAR and albuterol as needed. No recent exacerbations or hospitalizations related to asthma. CV: Blood pressure today in the office is 100/72. She has been working hard on her diet it her cholesterol remains elevated. She does have a family history of this. She is tolerating the Zepbound well and has lost some more weight. She would like to go up on the dosage. Psych: TMJ is improved with amitriptyline. Doing well. Requests refill today. Beet Topper: Managing bone densities, last one showed osteopenia and she has 1 year left of Fosamax per Gynecology. She is interested in seeing endo depending on this next dexa scan. [facility] Medical History (Updated 01/18/25 @ 13:17 by Tara Tapia PA-C) Osteoporosis TMJ (temporomandibular joint syndrome) Insomnia Generalized anxiety disorder Obesity (BMI 30.0-34.9) Colon polyp Hx of supraventricular tachycardia Asthma, mild intermittent, well-controlled Dyslipidemia IFG (impaired fasting glucose) Family History Father HTN (hypertension) Social History (Updated 08/31/24 @ 08:58 by Sindy Jamison CMA) Housing: House Alcohol intake: current Patient Tobacco Use Status: Former Tobacco user Cigarette Packs Per Day: 0.5 Years Smoked: 25 e-Cigarette/Vaping Use: Never Used Second Hand Smoke Exposure: No Substance Use Type: Marijuana service: No Current occupational status: employed 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 Current occupational exposures/hazards: No Cognitive needs: No Hearing needs: No Vision needs: No Questionnaire Thrive Questionnaire Date Thrive assessed: 06/01/24 I am a: Patient What is your living situation today?: I have a steady place to live Within the past 12 months, did the food you bought not last and you didn't have the money to get more?: Never true Within the past 12 months, did you worry whether your food would run out before you got money to buy more?: Never true Do you have trouble paying for medicines?: I choose not to answer this question Do you have trouble getting transportation to medical appointments?: No Do you have trouble paying your heating and electricity bill?: I choose not to answer this question Do you have trouble taking care of your child, family member or friend?: No Do you have trouble with day-to-day activities such as bathing, preparing meals, shopping, managing finances, etc.?: No Are you currently unemployed and looking for a job?: No Are you interested in more education?: I choose not to answer this question Please select the resources that you would like help with: None Currently or been in a relationship where the following occur: No concerns reported THRIVE Score: 0 AUDIT C Alcohol Use Questionnaire (AUDIT-C) 1. How often do you have a drink containing alcohol?: 2-4 times a month 2. How many drinks containing alcohol do you have on a typical day when you are drinking?: 3 or 4 3. How often do you have six or more drinks on one occasion?: Never Total Score: 3 CRISTIN-7 AMB Questionnaire CRISTIN-7 Date CRISTIN - 7 assessed: 03/30/24 Source: Developed by Drs. Shad Allen, Mayra Morales, Elder Valverde and colleagues, with an educational elsa from [employer]. Physical exam (Primary Care) Vital Signs: Last Vital Signs Temp 98.4 F 01/18/25 12:57 Pulse 84 01/18/25 12:57 Resp 12 01/18/25 12:57 BP 100/72 01/18/25 12:57 Pulse Ox 98 01/18/25 12:57 Oxygen Delivery Method Room Air 01/18/25 12:57 BMI result Body Mass Index 27.6 Tobacco/Smoking Status: Tobacco use Status Tobacco use date assessed 01/18/25 01/18/25 13:01 Patient Tobacco Use Status Former Tobacco user 01/18/25 12:55 e-Cigarette/Vaping Use Never Used 01/18/25 12:55 Thrive Assessment: Date of Thrive Assessment Date Thrive assessed 06/01/24 01/18/25 12:55 Currently or been in a relationship where the following occur: No concerns reported Const Orientation/consciousness: patient oriented x3 HENMT Ears: hearing grossly normal bilaterally Neck Thyroid: Thyroid normal Lymphatic: no lymphadenopathy noted Resp Auscultation: clear to auscultation bilaterally Cardio Rate: regular rate Rhythm: regular rhythm Heart sounds: S1 normal heart sound present and S2 normal heart sound present GI Inspection: Yes normal to inspection Palpation (GI): Soft to palpation and Other GI palpation findings present (nontender, no cva tenderness) Auscultation: normoactive bowel sounds Rectal Exam - Female: deferred Skin General skin exam: no rashes or lesions noted Neuro General: patient oriented x3, gait normal and no focal motor deficits Results Reviewed Results Reviewed: Laboratory Tests 06/02/24 12/30/24 09:03 08:03 WBC 5.8 RBC 4.63 Hgb 13.8 Hct 40.4 Plt Count 305 Sodium 140 Potassium 3.8 Chloride 107 Carbon Dioxide 27 Anion Gap 10 L BUN 10 Creatinine 0.88 Estimated GFR > 60 Fasting Glucose 83 Estimat Average Glucose 111 Hemoglobin A1c % 5.5 AST 20 ALT 23 Triglycerides 119 Cholesterol 221 H LDL Cholesterol, Calc 156 H HDL Cholesterol 42 Coding Level of Care Code Est Pt Level 4 (76219) Complex EM visit Add On G2211 Diagnoses Dyslipidemia E78.5 IFG (impaired fasting glucose) R73.01 Obesity (BMI 30.0-34.9) E66.9 Insomnia G47.00 Assessment & Plan Assessment & Plan (1) Dyslipidemia: Code(s): E78.5 - Hyperlipidemia, unspecified Category: Medical Plan: We will start atorvastatin. Discussed risks and benefits and adverse effects of this medication. We will plan to recheck labs in a few months. Sooner if needed. (2) IFG (impaired fasting glucose): Code(s): R73.01 - Impaired fasting glucose Category: Medical Plan: A1c has improved with weight loss. Encouraged her to continue with her healthy lifestyle modifications. We will monitor (3) Obesity (BMI 30.0-34.9): Code(s): E66.9 - Obesity, unspecified Category: Medical Plan: BMI has decreased. Doing well with the Zepbound. I have increased the dosage. (4) Insomnia: Code(s): G47.00 - Insomnia, unspecified Category: Medical Plan: Tolerating the amitriptyline well. Orders: Orders Hemoglobin A1c Today E66.9 - Obesity, unspecified, E78.5 - Hyperlipidemia, unspecified, R73.01 - Impaired fasting glucose Liver Panel Today E66.9 - Obesity, unspecified, E78.5 - Hyperlipidemia, unspecified, R73.01 - Impaired fasting glucose Basic Metabolic Panel Today E66.9 - Obesity, unspecified, E78.5 - Hyperlipidemia, unspecified, R73.01 - Impaired fasting glucose Lipid Panel Today E66.9 - Obesity, unspecified, E78.5 - Hyperlipidemia, unspecified, R73.01 - Impaired fasting glucose Complete Blood Count Auto Diff Today E66.9 - Obesity, unspecified, E78.5 - Hyperlipidemia, unspecified, R73.01 - Impaired fasting glucose TSH reflex Free T4 Today E66.9 - Obesity, unspecified, E78.5 - Hyperlipidemia, unspecified, R73.01 - Impaired fasting glucose Medications: New tirzepatide (weight loss) (Zepbound) 15 mg (0.5 mL) subcut QWEEK 2 mL 1RF atorvastatin (Lipitor) 10 mg PO BEDTIME 90 tabs 0RF tirzepatide (weight loss) (Zepbound) 15 mg (0.5 mL) subcut QWEEK 2 mL 1RF Discontinued tirzepatide (weight loss) (Zepbound) Discontinued Reason: Doctor's Order 12.5 mg (0.5 mL) subcut QWEEK 2 mL 3RF
[2025-01-18 12:57] VITALS: BP 100/72; PULSE 84; RESP 12; TEMP 36.9; O2SAT 98; BMI 27.6
--- OUTSIDE RECORDS SUMMARY | 2025-01-18 15:18 | XMS_ITS | Clinical Summary ---
Author Organization [facility] Address [address] [place] [phone] Phone Care Team Providers Care Edger Operator Name Role Phone Antonella Jrarell MD Primary Care Provider Yen Hemphill MD Unavailable [phone] Allergies No known active allergies Medications fluticasone [...] 08/05/2013 ZOSTER VACCINES (1 of 2) 2016 INFLUENZA VACCINE (#1) 2024 3, 05/07/2012, 02/12/2009 COVID-19 VACCINE (4 - 2024-2 6 season) 2024 05/01/2021, 10/09/2020, 09/13/2020 Adult Td,Tdap Booster 02/08/2031 [...] topic Medical Devices Not on file Insurance [facility] [employer] Care Teams Edger Operator Relationship Specialty Start Date End Date Antonella Jarrell MD PCP - General 06/20/22 Yen Hemphill MD [address] [place] [address] JAZMYNE ANTUNEZ [id number] 06/20/22 Additional Source Comments The information contained in this document represents components of the legal health record. It is not the complete legal health record.[facility]
== END 2025-01-18 13:22 | disposition home or self-care (01) ==
LOC: HO.HMCFM 12:52
PROVIDERS: PCP Physician Assistant; Visit Provider Physician Assistant
DX: E78.5 Hyperlipidemia, unspecified (principal); R73.01 Impaired fasting glucose; E66.9 Obesity, unspecified; Z68.27 Body mass index [BMI] 27.0-27.9, adult; G47.00 Insomnia, unspecified

== ENCOUNTER 2025-02-09 15:10 | Outpatient (REF) | payer OTHER, SELFPAY ==
--- OUTSIDE RECORDS SUMMARY | 2023-06-23 09:36 | XMS_ITS | Encounter Summary ---
Author Organization [facility] Address [address] [place] [address] [place] [address] Phone Care Team Providers Care Curing Room Worker Name Role Phone Antonella Jarrell MD Primary Care Provider [phone] Yen Hemphill MD Unavailable [phone] Encounter Details Date Type Department Care Team (Late st Contact Info) Description 06/23/2023 8:36 AM EST Hospital Encounter [facility] [address] [place] [address] Aleja Archuleta PA-C, MS [address] [place] [address] Social History Tobacco Use Types Packs/Day Years Used Date Smoking Tobacco: Never Smokeless Tobacco: Never Education Answer Date Recorded Are you interested in more education? Not on bharath e 08/23/2022 Are you concerned about learning? Not on file 08/23/2022 No 08/23/2022 No 08/23/2022 Digital Access Answer Date Recorded No 09/23/2022 No 09/23/2022 Reliable internet access at home? Not on file 09/23/2022 Device with a working camera? Not on file Comments Unknown Sex and Gender Information Value Date Recorded Sex Assigned at Not on file Legal Sex Female 6:24 AM EST Gender Identity Not on file Sexual Orientation Not on file documented as of this encounter Plan of Treatment Not on file documented as of this encounter Procedures Procedure Name Priority Date/Time Associated Diagnosis Comments XR HAND 3 OR MORE VIEWS (RIGHT) Urgent/patient waiting 06/23/2023 8:43 AM EST Fall, initial encounter documented in this encounter Results * XR HAND 3 OR MORE VIEWS (RIGHT) (06/23/2023 8:43 AM EST) Anatomical Region Laterality Modality Hand Right Computed Radiogr aphy 06/23/2023 8:58 AM EST Impressions 06/23/2023 9:04 AM EST No fracture or dislocation. Narrative 06/23/2023 9:04 AM EST XR HAND 3 OR MORE VIEWS (RIGHT) Referring clinician's provided indication for this examination in [facility]: S/P Fall; Worker's Comp, fall onto right side, now with pain in right 5th metacarpal and anterior right knee COMPARISON: None FINDINGS: No fracture. Normal alignment. Mild degenerative radiocarpal joint space narrowing. Soft tissue swelling is present along the ulnar aspect of the proximal hand. Procedure Note Thee Domínguez MD - 06/23/2023 XR HAND 3 OR MORE VIEWS (RIGHT) Referring clinician's provided indication for this examination in [facility]:S/P Fall; Worker's Comp, fall onto right side, now with pain in right 5thmetacarpal and anterior right knee COMPARISON: None FINDINGS: No fracture. Normal alignment. Mild degenerative radiocarpal joint spacenarrowing. Soft tissue swelling is present along the ulnar aspect of theproximal hand. IMPRESSION: No fracture or dislocation. Aleja Archuleta PA-C, MS IMG XR UPPER EXTRE MITY Final Result documented in this encounter Visit Diagnoses Not on filedocumented in this encounter Care Teams Curing Room Worker Relationship Specialty Start Date End Date Antonella Jarrell MD PCP - General 06/20/22 Yen Hemphill MD [address] [place] [address] 06/20/22 documented as of this encounter Additional Source Comments The information contained in this document represents components of the legal health record. It is not the complete legal health record.[facility]
--- OUTSIDE RECORDS SUMMARY | 2023-06-23 09:36 | XMS_ITS | Encounter Summary ---
Author Organization [facility] Address [address] [place] [address] [place] [address] Phone Care Team Providers Care Therapeutic Case Manager Name Role Phone Antonella Jarrell MD Primary Care Provider [phone] Yen Hemphill MD Unavailable [phone] Encounter Details Date Type Department Care Team (Late st Contact Info) Description 06/23/2023 8:36 AM EST Hospital Encounter [facility] [address] [place] [address] Aleja Archuleta PA-C, MS 30 [place] [address] Social History Tobacco Use Types Packs/Day Years [...] clinician's provided indication for this examination in [facility]: S/P Fall; Worker's Comp, fall onto right side, now with pain in right 5th metacarpal and anterior right knee COMPARISON: None. Procedure Note Thee Domínguez MD - 06/23/2023 XR KNEE 4 OR MORE VIEWS (RIGHT) Referring clinician's provided indication for this examination in [facility]:S/P Fall; Worker's Comp, fall onto right side, now with pain in right 5thmetacarpal and anterior right knee COMPARISON: None. IMPRESSION: Prepatellar soft tissue swelling. No fracture. Normal alignment. Normaljoint spaces. No knee joint effusion. Aleja Archuleta PA-C, MS IMG XR LOWER EXTRE MITY Final Result documented in this encounter Visit Diagnoses Not on filedocumented in this encounter Care Teams Therapeutic Case Manager Relationship Specialty Start Date End Date Antonella Jarrell MD PCP - General 06/20/22 Yen Hemphill MD [address] [place] [address] 06/20/22 documented as of this encounter Additional Source Comments The information contained in this document represents components of the legal health record. It is not the complete legal health record.[facility]
[2025-02-09 17:53] LABS: Appearance Urine Clear; Glucose Urine UA Negative (Negative); PH 6.5 (5.0-9.0); Specific Gravity - Urine <= 1.005 (1.005-1.025); UMIC TRIGGER UACC YES
[2025-02-09 18:19] LABS: UACC Culture Trigger YES
--- OUTSIDE RECORDS SUMMARY | 2025-02-09 19:01 | XMS_ITS | Clinical Summary ---
Author Organization [facility] Address [address] [place] [address] Phone Care Team Providers Care Life Insurance Salesperson Name Role Phone Antonella Jarrell MD Primary Care Provider Yen Hemphill MD Unavailable [phone] Allergies No known active allergies Medications fluticasone [...] Td,Tdap Booster 02/08/2031 02/08/2021 , 10/30/2010, 06/29/1998 RSV VACCINE (1 - 1-dose 75+ series) 2041 SMOKING STATUS SCREENING (On ce After 26 [...] topic Medical Devices Not on file [facility] [employer] Care Teams Life Insurance Salesperson Relationship Specialty Start Date End Date Antonella Jarrell MD PCP - General 06/20/22 Yen Hemphill MD [address] [place] [address] 06/20/22 Additional Source Comments The information contained in this document represents components of the legal health record. It is not the complete legal health record.[facility]
== END 2025-02-09 15:11 | disposition home or self-care (01) ==
LOC: HO.WFDLDS 15:10
PROVIDERS: Visit Provider Physician Assistant
DX: R30.0 Dysuria (principal)
CPT/HCPCS: 81001; 81003; 87086; 87088; 87186